=== PATIENT | male | born 1965 | race Caucasian/White ===

== ENCOUNTER → 2018-01-18 | Outpatient (CLI) | payer OTHER ==
--- NOTE | 2018-01-18 09:09 | US ---
EXAMINATION TYPE: US carotid duplex BILAT DATE OF EXAM: 01/18/2018 COMPARISON: NONE CLINICAL HISTORY: M54.5 Lumbago / M54.2 Cervicalgia / R51 Headache. Neck pain, headaches EXAM MEASUREMENTS: RIGHT: Peak Systolic Velocity (PSV) cm/sec ----- Right CCA: 78.7 ----- Right ICA: 65.5 ----- Right ECA: 89.9 ICA/CCA ratio: 0.8 RIGHT: End Diastole cm/sec ----- Right CCA: 23.7 ----- Right ICA: 21.5 ----- Right ECA: 22.1 LEFT: Peak Systolic Velocity (PSV) cm/sec ----- Left CCA: 89.8 ----- Left ICA: 77.6 ----- Left ECA: 82.1 ICA/CCA ratio: 0.9 LEFT: End Diastole cm/sec ----- Left CCA: 20.6 ----- Left ICA: 26.7 ----- Left ECA: 15.4 VERTEBRALS (direction of flow): Right Vertebral: Antegrade Left Vertebral: Antegrade Rhythm: Normal No elevated velocities, no significant stenosis. IMPRESSION: Mild degree of grayscale atheromatous plaquing with no sonographically evident hemodynam ically significant stenosis within either visualized carotid arterial system.
--- NOTE | 2018-01-18 10:46 | MR ---
EXAMINATION TYPE: MR brain wo con DATE OF EXAM: 01/18/2018 COMPARISON: NONE HISTORY: Headache per order. TECHNIQUE: Multiplanar, multisequence imaging of the brain and brainstem is performed without IV cont rast. FINDINGS: Diffusion weighted images demonstrate no evidence of a recent infarct or other diffusion abnormality. There is no extraaxial fluid collection or significant white matter signal abnormality. The ventricu lar system and cisternal spaces are normal in size and appearance. The brain volume is age appropria te. Midline structures demonstrate normal morphology. The craniocervical junction appears within normal limits. Normal vascular flow voids are present. Dominant left vertebral artery incidentally noted. Th e visualized sinuses are clear and the globes are intact. IMPRESSION: No suspicious finding is seen to account for patient's symptoms.
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
== END | disposition home or self-care (01) ==
LOC: RADUSMAIN 08:09
PROVIDERS: ATTEND Psychiatry & Neurology Neurology
DX: M48.061 Spinal stenosis, lumbar region without neurogenic claudication (principal); M99.73 Connective tissue and disc stenosis of intervertebral foramina of lumbar region; M51.26 Other intervertebral disc displacement, lumbar region; M47.817 Spondylosis without myelopathy or radiculopathy, lumbosacral region; M46.97 Unspecified inflammatory spondylopathy, lumbosacral region; M50.222 Other cervical disc displacement at C5-C6 level; I65.23 Occlusion and stenosis of bilateral carotid arteries; R55 Syncope and collapse; R51 Headache
CPT/HCPCS: 70551; 72141; 72148; 93880

== ENCOUNTER → 2019-08-29 | Outpatient (CLI) | payer OTHER ==
--- NOTE | 2019-08-30 07:28 | CT ---
EXAMINATION TYPE: CT abdomen wo/w con DATE OF EXAM: 08/29/2019 COMPARISON: None. HISTORY: Epigastric and flank pain x couple weeks. CT DLP: 1642 mGycm, Automated Exposure Control for Dose Reduction was Utilized. CONTRAST: CT scan of the abdomen is performed with oral and without and with IV Contrast, patient injected with 100ml mL of Isovue 300. FINDINGS: LUNG BASES: No significant abnormality is appreciated. LIVER/GB: Noncontrast images show liver to be markedly hypodense consistent with diffuse fatty infilt ration. PANCREAS: No significant abnormality is seen. SPLEEN: No significant abnormality is seen. ADRENALS: No significant abnormality is seen. KIDNEYS: Noncontrast images show no renal calculi bilaterally. There is symmetric cortical medullary uptake and excretion from both kidneys without concerning solid or cystic renal mass or hydronephrosi s seen bilaterally. BOWEL: Oral contrast does not reach colonic level making evaluation slightly suboptimal. Appendix is normal in size from base of cecum. LYMPH NODES: No greater than 1cm abdominal lymph nodes are appreciated. OSSEOUS STRUCTURES: Partially sacralized right L5 segment is seen. Moderate disc space narrowing and spurring L4-L5 level. Posterior spurring effaces the ventral thecal sac at this level. Facet arthropa thy lower lumbar levels. OTHER: Mild calcified plaque of the aorta. Moderate size wide neck umbilical hernia containing fat ax ial image 57. IMPRESSION: No significant acute finding is seen to account for patient's clinical symptoms of epiga stric and flank pain. Fatty infiltration of liver is noted..
== END | disposition home or self-care (01) ==
LOC: RADCTMAIN 15:19
PROVIDERS: ATTEND Nurse Practitioner
DX: K76.0 Fatty (change of) liver, not elsewhere classified (principal)
CPT/HCPCS: 74170; Q9967

== ENCOUNTER → 2019-10-26 | Outpatient (CLI) | payer OTHER ==
--- NOTE | 2019-10-26 10:06 | MR ---
EXAMINATION TYPE: MR lumbar spine wo con DATE OF EXAM: 10/26/2019 COMPARISON: Prior MRI lumbar spine January 18, 2018. CT abdomen August 29, 2019. HISTORY: Low back pain, disc degeneration, osteophyte, and radiculopathy all per order. Low back pain for over 10 years into bilateral thighs and right calf per patient. TECHNIQUE: Multiplanar, multisequence imaging of the lumbar spine is performed without IV contrast. FINDINGS: Sagittal images of the lumbar spine show vertebral body heights and alignment to remain satisfactory. While use same counting system as utilized on prior MRI. Prominent Schmorl node superior L4 and L5 e ndplates are redemonstrated. There is sacralized right L5 segment noted. There is persistent disc mery iccation at L3-L4 and L4-L5 levels. There is persistent moderate disc space narrowing L4-L5 level wit h moderate anterior spurring and heterogeneous Modic type II endplate changes redemonstrated. Small p osterior disc herniation L4-L5 level remains present on sagittal images. The conus medullaris remain s normal in position and signal ending mid L1 level. Axial images show the T12-L1 level to remain within normal limits. Axial images at L1-L2 level and the L2-L3 levels redemonstrate stable mild facet degenerative changes bilaterally . Axial images at L3-L4 level redemonstrate mild facet degenerative changes bilaterally. There is broad -based posterior disc protrusion minimally effacing anterior thecal sac on axial image 13. There is m ild bilateral anterior inferior neural foraminal narrowing redemonstrated. No significant change from prior. Axial images at L4-L5 level redemonstrate moderate facet degenerative changes bilaterally. There is b road-based posterior disc protrusion minimally effacing anterior thecal sac. There is mild to moderat e right greater than left bilateral anterior inferior neural foraminal narrowing redemonstrated. Ther e is no significant change from prior. Axial images at L5-S1 level show stable mild to moderate facet degenerative changes bilaterally. No suspicious incidental new retroperitoneal findings are seen. IMPRESSION: Multilevel degenerative changes in the lumbar spine as detailed above greatest at the L4- L5 level. No significant change or progression from most recent MRI.
== END | disposition home or self-care (01) ==
LOC: RADMRIMAIN 09:12
PROVIDERS: ATTEND Orthopaedic Surgery Orthopaedic Surgery of the Spine
DX: M47.26 Other spondylosis with radiculopathy, lumbar region (principal)
CPT/HCPCS: 72148

== ENCOUNTER → 2020-01-29 | Outpatient (CLI) | payer OTHER ==
[2020-01-27 15:47] VITALS: BMI 27.8
[2020-01-29 10:20] VITALS: BP 165/106; PULSE 84; RESP 16
--- NOTE | 2020-01-29 10:40 | P.PAINCN ---
History of Present Illness - Reason for Consult Consult date: 01/29/20 Requesting physician: Snehal Vargas - Chief Complaint Low back pain, right leg numbness and pain. - History of Present Illness Mr. Joya is a very pleasant 54-year-old male who presents to the [facility] pain clinic at the request of Dr. Neil Vargas. He presents with a chief complaint of low back pain and numbness and tingling in his right leg. He's had this pain for at least 5 years that's progressively gotten worse. He's had no therapy or evaluation up until this past year. He did see Dr. Romero for an unrelated issue and had a right hip injection that provided him with no relief of pain in his right leg. VAS today ranges from 3-7 out of 10 in severity describes it as a constant with varying intensity throbbing, shooting, numbing, tingling sensation in his right upper buttock radiating to his anterior quadriceps along his tibia into the dorsal aspect of his right foot. Pain is typically worse after activity and at night. He does not recall any alleviating factors other than rest. He's taken [id number] medication with no benefit. He does not endorse any recent falls. He denies any bowel or bladder incontinence or saddle anesthesia. Review of Systems Review of Systems 1. Constitutional: No chills , no fever , no night sweats , no change of appetite, no lethargy 2. Ears: No ear ache, no ear discharge , no change in hearing 3. Nose, Mouth ,Throat; No bleeding gums, no sore throat , no epistaxis , no hoarseness , no voice change 4. Cardiovascular: Denies chest pain, no palpitation , no paroxysmal nocturnal dyspnea , no leg edema 5. Respiratory: Denies cough , no dyspnea , no hemoptysis , no sleep apnea, no wheezing 6. Gastrointestinal: No abdominal pain , no bloating , no change in bowel habits , no coffee-ground emesis , No melena , no jaundice , no nausea , no vomiting 7. Genitourinary: No hematuria , no discharge 8. Musculoskeletal: As per HPI 9. Neurological: No ataxia , no aphasia ,no balance difficulties, no change in visions , no change in speech , no tremor . 10. Psychatric: depression , no suicidal ideation, 11. Hematologic: No easy bleeding, no easy brusing. 12. Integumentary: No brttle nails, no change hair , no hirsutism no depigmentation , no foot/leg ulcers . Past Medical History Past Medical History: GERD/Reflux, Hypertension, Sleep Apnea/CPAP/BIPAP Additional Past Medical History / Comment(s): states episodes where he passes out (x3)., uses c-pap machine., recent Gerd, avk-ztfxyupu-[id number] diet, abnormal liver enzymes-dr monitoring., Back pain that radiates to hips and down right leg. History of Any Multi-Drug Resistant Organisms: None Reported Additional Past Surgical History / Comment(s): tendons in wrist surgery. Past Anesthesia/Blood Transfusion Reactions: No Reported Reaction Smoking Status: Never smoker - Past Family History Mother Family Medical History: Cancer Sister(s) Family Medical History: Cancer Medications and Allergies Home Medications Medication Instructions Recorded Confirmed Type Levothyroxine Sodium 25 mcg PO DAILY 01/27/20 01/27/20 History amLODIPine BESYLATE [Norvasc] 2.5 mg PO DAILY 01/27/20 01/27/20 History Allergies Allergy/AdvReac Type Severity Reaction Status Date / Time losartan AdvReac Unknown cramps in Verified 01/29/20 10:13 back, chest and legs. unknown bp med AdvReac Unknown Cough Uncoded 01/29/20 10:13 Physical Exam Vitals: Vital Signs Pulse Resp BP Pulse Ox 01/29/20 10:13 84 16 165/106 96 Gen: WDWN, AAOx3, NAD HEENT: NCAT, EOMI, hearing grossly normal Pulm: resp unlabored Abd: soft, NT, ND Neck: supple, trachea midline ROM in flexion cervical spine: Normal ROM in extension cervical spine: Normal Cervical paravertebral tenderness: Normal Cervical Facet tenderness: Negative for tenderness Spurling's: Negative ROM in flexion lumbar spine: Pain with flexion at 45 ROM in extension lumbar spine: Pain with extension at -5 Lumbar paravertebral tenderness: + Bilateral Facet loading: + Bilateral SI joint tenderness: Negative Ermias's test: Negative Straight leg raise: + + Right Right hip range of motion appropriate, no pain with motion or external rotation. Neuro: Muscle strength in upper extremity 5 out of 5 in triceps, biceps, deltoid and wrist flexion and extension. Left lower extremity dorsiflexion and plantar flexion and quadriceps extension is appropriate 5 out of 5. Quadriceps extension 4 out of 5 on the right, dorsiflexion 4 out of 5 on the right. 1 out of 2 patellar reflexes bilaterally 1 out of 2 reflexes in biceps and brachial radialis. Dysesthesia noted along L3 and L4 nerve root on the right. Results Results: MRI lumbar spine: 1. At L1-L2 and L2-L3 there is mild facet degenerative changes bilaterally. 2. At L3-L4 mild facet degenerative changes bilaterally, there is a broad-based posterior disc protrusion effacing the anterior thecal sac. There is bilateral neuroforaminal narrowing demonstrated. 3. At L4-L5 there is moderate facet degeneration noted bilaterally. Is a broad-based posterior disc protrusion leading to moderate right neural foraminal narrowing. 4. At L5-S1 there is mild to moderate facet degeneration bilaterally. Assessment and Plan Assessment: 1. Lumbar degenerative disc disease 2. Lumbar spondylosis without myelopathy 3. Lumbar radiculopathy. Plan: After reviewing images and thorough history and physical I discussed with Dr. Joya his diagnosis as well as possible therapies. We discussed performing epidural steroid injections targeting the L3-L4 and L4-L5 interspace on the right specifically. We also discussed doing lumbar facet injections at L3-L4, L4-L5, L5-S1. He states that the radicular pain into his right leg is most problematic. He would like to proceed with epidural steroid injections after reviewing the risks and benefits in detail. I discussed include performed to once authorization is received from the insurance company. Would likely do them 1-2 weeks apart and then reevaluate. Given the fact that this is been an ongoing issue for over 5 years I did discuss the possibility that the epidural injections may not work. Patient understands and wishes to proceed regardless. PQRS Measure Charge Sheet PQRS Narrative: Smoking Status Never smoker Blood Pressure 165/106 Pain Intensity [Lower Back] 7 Scale Used Numeric (1 - 10) Hx Alcohol Use (MH) No Home Medications: Ambulatory Orders Levothyroxine Sodium 25 mcg PO DAILY 01/27/20 amLODIPine BESYLATE [Norvasc] 2.5 mg PO DAILY 01/27/20
== END | disposition home or self-care (01) ==
LOC: PNWHC3 09:00
PROVIDERS: ATTEND Anesthesiology
DX: M51.16 Intervertebral disc disorders with radiculopathy, lumbar region (principal); M47.26 Other spondylosis with radiculopathy, lumbar region; Z79.899 Other long term (current) drug therapy; Z88.8 Allergy status to other drugs, medicaments and biological substances
CPT/HCPCS: 99211

== ENCOUNTER 2020-03-17 08:16 | Day surgery (SDC) | payer OTHER ==
[2020-03-16 11:45] VITALS: BMI 28.1
[~2020-03-17 08:16] MED LIST: LACTATED RINGERS 1,000 ML IV SCH
[2020-03-17 08:49] VITALS: TEMP 97.4
[2020-03-17 08:59] LABS: Glucose,Whole Blood 150 mg/dL (75-99)
[2020-03-17] MEDS ORDERED: fentaNYL (PF) 50 MCG/ML 2 ML AMP ONE (09:19)
[2020-03-17] MEDS ORDERED: DEXAMETHASONE SOD PHOSPHATE 10 MG/ML 1 ML VIAL ONE (09:19)
[2020-03-17] MEDS ORDERED: MIDAZOLAM 2 MG/2 ML VIAL ONE (09:19)
[2020-03-17] MEDS ORDERED: IOPAMIDOL M200 10 ML VIAL ONE (09:19)
[2020-03-17] MEDS ORDERED: IV FLUID CONTINUATION 1,000 ML IV ONE ×2 (09:45)
[2020-03-17 09:51] VITALS: RESP 18
--- NOTE | 2020-03-17 09:51 | P.PCN ---
Date of Procedure: 03/17/20 Procedure(s) Performed: PREOPERATIVE DIAGNOSIS: Lumbar radiculopathy POSTOPERATIVE DIAGNOSIS: Lumbar radiculopathy Attending physician: Kenisha Miguel M.D. PROCEDURE 1. Transforaminal epidural steroid injection under fluoroscopic guidance L3-4 and L4-5 level, right side 2. Lumbar epidurogram ANESTHESIA: Local with 1% lidocaine 3 ml ; IV sedation with Versed and fentanyl , sedation time 11 minutes PROCEDURE INDICATION: The patient with low back pain and radiculopathy symptoms unresponsive to conservative treatment. Fluoroscopy was used for the procedure and fluoroscopic images were saved to the radiology portion of patient's chart. PROCEDURE DESCRIPTION / TECHNIQUE: The patient was seen and identified in the preoperative area. Risks, benefits, complications, and alternatives were discussed with the patient. The patient agreed to proceed with the procedure and signed the consent. IV was started, and vital signs were stable. Patient was taken to the OR and time out was completed. The patient was placed in the prone position on procedure table and a pillow was placed under the abdo men to reduce lumbar lordosis. The lumbosacral area was prepped and draped in the usual sterile fashion. Vital signs were closely monitored during the procedure. Conscious sedation was used. Using oblique fluoroscopy, the chin of the ``Michael dog and the skin and deeper tissues just below was localized with 1% lidocaine. Subsequently, a 22- gauge 5-inch spinal needle was advanced under a tunneled view fluoroscopic guidance just underneath the chin of the ``Michael dog at above-mentioned levels . Under lateral fluoroscopy, the needle was then advanced to the posterior border of the foramen. After negative aspiration of CSF and blood and with no paresthesias, 1 mL of Isovue-200 contrast dye was injected under live fluoroscopy and there was no evidence of intravascular injection. The injectate solution consisting of 7.5 mg of dexamethasone with 1 mL of 1% lidocaine was then delivered at each spot. A total of 15 mg of dexamethasone was used. The needles was withdrawn intact. At the end of the procedure, skin was cleansed, and bandages were applied. COMPLICATIONS: None COMMENTS: DISPOSITION / PLANS: The patient was placed in a supine position and transferred to the recovery area in a stable condition for observation. There was no evidence of lower extremity motor or sensory deficit after the procedure. Patient was discharged from the recovery room after meeting discharge criteria. Home discharge instructions were given to the patient by the staff. The patient will follow up in clinic in 2-4 weeks.
[2020-03-17 10:05] VITALS: BP 132/75; PULSE 56
--- NOTE | 2020-03-17 10:19 | FL ---
EXAMINATION TYPE: FL guided pain mgmt statistic DATE OF EXAM: 03/17/2020 COMPARISON: NONE HISTORY: Right transforaminal pain injection TECHNIQUE: Fluoroscopy. FINDINGS: Fluoroscopic guidance was provided during procedure performed by Dr. Lyons. A total of 8 se conds of fluoroscopic time was utilized during the procedure and 5 spot images was acquired. IMPRESSION: Fluoroscopic guidance as above. Please see performing physician's operative note for colton tional details.
== END 2020-03-17 10:27 | disposition home or self-care (01) ==
LOC: ORPAIN 08:16
PROVIDERS: ATTEND Anesthesiology
DX: M54.16 Radiculopathy, lumbar region (principal); R73.03 Prediabetes; Z88.8 Allergy status to other drugs, medicaments and biological substances
CPT/HCPCS: 64483; 64484; 99152

== ENCOUNTER 2020-05-12 12:46 | Day surgery (SDC) | payer OTHER ==
[2020-05-11 11:22] VITALS: BMI 27.8
[2020-05-12] MEDS ORDERED: LACTATED RINGERS 1,000 ML IV SCH (12:54)
[2020-05-12 13:11] VITALS: RESP 16; TEMP 98.4
[2020-05-12 13:13] LABS: Glucose,Whole Blood 111 mg/dL (75-99)
[2020-05-12] MEDS ORDERED: ROPIVACAINE 5MG/ML 20ML VIAL ONE (13:13)
[2020-05-12] MEDS ORDERED: IOPAMIDOL M200 10 ML VIAL ONE (13:13)
[2020-05-12] MEDS ORDERED: MIDAZOLAM 2 MG/2 ML VIAL ONE (13:13)
[2020-05-12] MEDS ORDERED: fentaNYL (PF) 50 MCG/ML 2 ML AMP ONE (13:13)
[2020-05-12] MEDS ORDERED: DEXAMETHASONE SOD PHOSPHATE 10 MG/ML 1 ML VIAL ONE (13:13)
--- NOTE | 2020-05-12 13:34 | P.PCN ---
Date of Procedure: 05/12/20 Description of Procedure: PREOPERATIVE DIAGNOSIS: Lumbar radiculopathy POSTOPERATIVE DIAGNOSIS: Lumbar radiculopathy Attending physician: José Miguel Perez M.D. PROCEDURE 1. Transforaminal epidural steroid injection under fluoroscopic guidance L3-4 and L4-5 level, right side 2. Lumbar epidurogram ANESTHESIA: Local with 1% lidocaine 3 ml ; IV sedation with Versed and fentanyl , sedation time 14 minutes PROCEDURE INDICATION: The patient with low back pain and radiculopathy symptoms unresponsive to conservative treatment. Fluoroscopy was used for the procedure and fluoroscopic images were saved to the radiology portion of patient's chart. PROCEDURE DESCRIPTION / TECHNIQUE: The patient was seen and identified in the preoperative area. Risks, benefits, complications, and alternatives were discussed with the patient. The patient agreed to proceed with the procedure and signed the consent. IV was started, and vital signs were stable. Patient was taken to the OR and time out was completed. The patient was placed in the prone position on procedure table and a pillow was placed under the abdomen to reduce lumbar lordosis. The lumbosacral area was prepped and draped in the usual sterile fashion. Vital signs were closely monitored during the procedure. Conscious sedation was used. Using oblique fluoroscopy, the chin of the ``Michael dog and the skin and deeper tissues just below was localized with 1% lidocaine. Subsequently, a 22- gauge 5-inch spinal needle was advanced under a tunneled view fluoroscopic guidance just underneath the chin of the ``Michael dog at above-mentioned levels . Under lateral fluoroscopy, the needle was then advanced to the posterior border of the foramen. After negative aspiration of CSF and blood and with no paresthesias, 1 mL of Isovue-200 contrast dye was injected under live fluoroscopy and there was no evidence of intravascular injection. The injectate solution consisting of 5 mg of dexamethasone with 1.5 mL of 0.5% ropivacaine was then delivered at each spot. A total of 10 mg of dexamethasone was used. The needles was withdrawn intact. At the end of the procedure, skin was cleansed, and bandages were applied. COMPLICATIONS: None COMMENTS: DISPOSITION / PLANS: The patient was placed in a supine position and transferred to the recovery area in a stable condition for observation. There was no evidence of lower extremity motor or sensory deficit after the procedure. Patient was discharged from the recovery room after meeting discharge criteria. Home discharge instructions were given to the patient by the staff. The patient will follow up in clinic in 2-4 weeks.
--- NOTE | 2020-05-12 13:45 | FL ---
Fluoroscopy HISTORY: Pain 34 seconds fluoroscopy time supplied to the referring clinician. 4 intraoperative C-arm images docum ent the procedure. See dictated report from anesthesia.
[2020-05-12 13:46] VITALS: PULSE 74
[2020-05-12 13:58] VITALS: BP 145/89
[2020-05-12] MEDS ORDERED: IV FLUID CONTINUATION 1,000 ML IV ONE (14:02)
== END 2020-05-12 14:12 | disposition home or self-care (01) ==
LOC: ORPAIN 12:46
PROVIDERS: ATTEND Anesthesiology
DX: M54.16 Radiculopathy, lumbar region (principal); E11.9 Type 2 diabetes mellitus without complications; Z88.8 Allergy status to other drugs, medicaments and biological substances
CPT/HCPCS: 64483; 64484; J2250; J1100; J3010; Q9966; J2795; 99152

== ENCOUNTER → 2020-06-15 | Outpatient (CLI) | payer OTHER ==
[2020-06-15 08:06] VITALS: PULSE 89; RESP 18; TEMP 97.9
--- NOTE | 2020-06-15 08:17 | P.PAINPG ---
Subjective Progress Note Date: 06/15/20 Principal diagnosis: lumbar radiculopathy Mr. Joya is a 54-year-old gentleman who presents for follow-up after right-sided transforaminal epidural steroid injection L3-4, L4-L5. He reports that injections only helped transiently. As for today has pain most of the right side of his low back. He describes pain over the right lumbar area with some radiation to her anterior thigh and into the buttocks. There is no pain into the groin. There is no pain with internal/external rotation of the hip joint. He has pain which she describes as a aching sensation sometimes sharp shooting pain down the leg but that is very common. He reports that somewhat improved. He has some pain over left side of low back and has but is a right. Facet that the pain is limiting his daily activities. He has been in physical therapy many years ago continues to try to do some of the stretches but not in full therapy at this time. Objective - Exam General: Awake and alert oriented 3 no distress Respiratory exam: No audible wheezing no accessory muscle usage Cardiovascular exam: regular rate, palpable bilateral pulses, no lower extremity edema Abdominal exam: No distention nontender to palpation Cervical spine: Normal alignment, Spurling's negative, facet loading negative, Policy Value Calculator strength is 5/5, antoine negative Lumbar spine: Loss of lumbar lordosis, normal alignment, tender to palpation over right paraspinal muscles, facet loading is positive on the right Straight leg raise is negative. Limited range of motion due to pain with flexion, extension and side bending. Sacroiliac joints: Nontender to palpation, KARAN is negative, Gaenselon negative Neuro exam: Normal sensation in bilateral upper extremities, deep tendon reflexes are 2+ bilateral upper extremities. Normal sensation in bilateral lowe r extremities. Deep tendon reflexes are 2+ in lower extremities Psych exam: Cooperative, appropriate mood Assessment and Plan Assessment: #1 lumbar spondylosis without myelopathy #2 lumbar degenerative disc disease #3 lumbar radiculopathy Plan: Had a discussion with the patient regarding her symptoms and isn't improvement from the transfemoral epidural injection. We discussed that doing a diagnostic test in the right side facet joints would likely be a next best step. He reports that the Mobic did not help very much so we'll stop that. We'll schedule for a right-sided L3 4, L4 5, L5-S1 medial branch block. We discussed diagnostic utilization in detail. We discussed the potential radio frequency ablation may be required. PQRS Measure Charge Sheet Measure #130: Documentation of Current Meds in Medical Chart: Patient's medications documented in chart Measure #226: Tobacco Use: Screen & Cessation Intervention: Pt not a tobacco user Measure #111: Pneumonia Vaccination: Pneumococcal vaccine administered or previo usly received Measure #47: Advance Care Plan: Advance care planning discussed & documented, plan or surrogate given Measure #412: Opioid Treatment Agreement: No documentation of signed opioid treatment agreement Measure #408: Opioid Therapy Follow-up Evaluation: Patient had f/u eval minimum every 3 months during opioid therapy Measure #317: Preventitive Care & Scrn High Bld Press & F/U: Normal blood pressure, f/u not required Measure #128: Body Mass Index (BMI) Screening & Follow-up: BMI documented ABOVE normal parameters - f/u documented Measure #131: Pain Assessment & Follow-up: Pain positive & plan documented Measure #431: Unhealthy Alcohol Use Preventative Care & Scrn: Patient not identified as an unhealthy alcohol user PQRS Narrative: Smoking Status Never smoker Pain Intensity [Back] 8 Scale Used Numeric (1 - 10) Hx Alcohol Use (MH) Yes: RARE Home Medications: Ambulatory Orders Levothyroxine Sodium 25 mcg PO DAILY 01/27/20 amLODIPine BESYLATE [Norvasc] 2.5 mg PO DAILY 01/27/20 Ibuprofen 600 - 800 mg PO Q8H PRN 06/12/20 Meloxicam [Mobic] 15 mg PO DAILY 06/12/20 Controlled Substance Measures - Controlled Substance Measures Is patient prescribed a controlled substance at discharge?: No When asked, does pt state using other controlled substances?: No
[2020-06-15 08:22] VITALS: BP 164/105
== END | disposition home or self-care (01) ==
LOC: PNWHC3 07:52
PROVIDERS: ATTEND Hospitalist
DX: M51.36 Other intervertebral disc degeneration, lumbar region (principal); M47.26 Other spondylosis with radiculopathy, lumbar region; Z79.890 Hormone replacement therapy; Z79.899 Other long term (current) drug therapy; Z79.1 Long term (current) use of non-steroidal anti-inflammatories (NSAID)
CPT/HCPCS: 99211

== ENCOUNTER 2020-07-10 06:59 | Day surgery (SDC) | payer OTHER ==
[2020-07-09 12:24] VITALS: BMI 27.8
[2020-07-10 07:41] VITALS: RESP 16; TEMP 97.2
[2020-07-10] MEDS ORDERED: LACTATED RINGERS 1,000 ML IV ONE (07:55)
[2020-07-10] MEDS ORDERED: MIDAZOLAM 2 MG/2 ML VIAL ONE (08:10)
[2020-07-10] MEDS ORDERED: fentaNYL (PF) 50 MCG/ML 2 ML AMP ONE (08:10)
[2020-07-10] MEDS ORDERED: ROPIVACAINE 5MG/ML 20ML VIAL ONE (08:10)
[2020-07-10] MEDS ORDERED: methylPREDNISolone ACETATE 40 MG/ML 1 ML VIAL ONE (08:10)
[2020-07-10] MEDS ORDERED: IOPAMIDOL M200 10 ML VIAL ONE (08:10)
--- NOTE | 2020-07-10 08:27 | P.PCN ---
Date of Procedure: 07/10/20 Description of Procedure: PREOPERATIVE DIAGNOSIS : Lumbar spondylosis with Facet Arthropathy without myelopathy POSTOPERATIVE DIAGNOSIS: same PROCEDURE: first Diagnostic RIGHT lumbar medial branch block with fluoroscopy at facets L3-4, L4-5, L5-S1. Note, patient has sacralized L5 vertebrae fused with S1 ANESTHESIA: Local anesthetic; moderate IV sedation Fluoroscopy was used for the procedure and images were saved in the radiology portion of the chart. Surgeon: José Miguel Perez MD PROCEDURE INDICATION: Lumbar back pain without radiculopathy, not responsive to conservative management. PROCEDURE DESCRIPTION: the patient was seen and identified in the preop holding area , risks and benefits and possible complications of the procedure and alternatives were discussed with the patient, and the patient agreed to proceed with the procedure and signed the consent . IV was started , vital signs were monitored during the procedure and fluoroscopy was used to maximize the benefit and accuracy of the needle placement, and sedation was given to decrease patient anxiety. Patient was taken to the procedure room and placed in prone position. The lumbar region was prepped using chlorhexidineX-2. Under strict sterile technique using AP fluoroscopy the bilateral sacral ala were identified and using ipsilateral oblique fluoroscopy ,the junction of the transverse process and the superior articulating process of the L3, L4, sacralized L5 vertebra which corresponds to the fluoroscopy image of the eye of the Michael dog for the medial branches were identified. Subsequently, after local infiltration of skin with lidocaine 1% 0.2 mL at each level , a 25-gauge 3.5" Quincke-type needle was placed at the junction of the base of the transverse process and the superior articular process at the appropriate level as well as the sacral ala, and the needle was advanced until the periosteum contacted, needle placement confirmed with AP and oblique fluoroscopy, 0.2 mL of Isovue 200 per level was injected which revealed no vascular uptake and after negative aspiration,3 mL of bupivacaine 0.5% with 40 mg of depomedrol was mixed and injected at each level and the needle subsequently removed . Total of 3 sites were injected, at the junction of the SAP and TP of L3, L4 and at what looked like the junction of the SAP and TP with fused S1 and L5 vertebra. At the end of the procedure and the needles were removed and a bandage applied after the skin was cleaned. The patient was taken to recovery room in stable condition and monitors in the recovery room for 20-30 minutes and discharged home in stable condition after discharge criteria met and patient will follow up in clinic in 2 weeks EBL: Minimal COMPLICATION: None.
[2020-07-10 08:58] VITALS: BP 1258/79; PULSE 70
[2020-07-10] MEDS ORDERED: IV FLUID CONTINUATION 700 ML IV ONE (08:58)
--- NOTE | 2020-07-10 10:11 | FL ---
Fluoroscopy HISTORY: Pain 12 seconds fluoroscopy time supplied to the referring clinician. 2 intraoperative C-arm images docum ent the procedure. See dictated report from anesthesia.
== END 2020-07-10 09:02 | disposition home or self-care (01) ==
LOC: ORPAIN 06:59
PROVIDERS: ATTEND Anesthesiology
DX: M47.816 Spondylosis without myelopathy or radiculopathy, lumbar region (principal); Q76.49 Other congenital malformations of spine, not associated with scoliosis; I10 Essential (primary) hypertension; Z79.899 Other long term (current) drug therapy
CPT/HCPCS: 64493; 64494; 64495; J2250; J1030; J3010; Q9966; J2795

== ENCOUNTER 2020-09-11 06:54 | Day surgery (SDC) | payer OTHER ==
[2020-09-10 12:36] VITALS: BMI 26.4
[2020-09-11 07:24] VITALS: TEMP 98.2
[2020-09-11 07:36] LABS: Glucose,Whole Blood 133 mg/dL (75-99)
[2020-09-11] MEDS ORDERED: ROPIVACAINE 5MG/ML 20ML VIAL ONE (08:20)
[2020-09-11] MEDS ORDERED: methylPREDNISolone ACETATE 40 MG/ML 1 ML VIAL ONE (08:20)
[2020-09-11] MEDS ORDERED: MIDAZOLAM 2 MG/2 ML VIAL ONE (08:23)
[2020-09-11] MEDS ORDERED: fentaNYL (PF) 50 MCG/ML 2 ML AMP ONE (08:23)
--- NOTE | 2020-09-11 08:37 | P.PCN ---
Date of Procedure: 09/11/20 Procedure(s) Performed: PREOPERATIVE DIAGNOSIS : 1- Lumbar spondylosis with Facet Arthropathy without myelopathy . POSTOPERATIVE DIAGNOSIS: 1- Lumbar spondylosis with Facet Arthropathy without myelopathy . PROCEDURE: Diagnostic Right L2 , L3 , L4 , and L5 medial branch block under fluoroscopy guidance(fluoroscopy images available in the radiology Department ) ( To target the facet joint between Right L3-4 , L4-5 , and L5-S1 ) ANESTHESIA:, Monitored anesthesia care by anesthesia department EBL: Minimal COMPLICATION: None PROCEDURE INDICATION: Chronic low back pain secondary to Facet arthropathy unresponsive to conservative treatment. PROCEDURE DESCRIPTION: the patient was seen and identified in the preop holding area , risks and benefits and possible complications of the procedure and alternative were discussed with the patient, and the patient agreed to proceed with the procedure and signed the consent and vital signs monitored during the procedure and fluoroscopy was used to maximize the benefit and accuracy of the needle placement, and sedation was given to decrease patient anxiety, patient was taken to the procedure room and placed in prone position vital signs monitored in the back prepped with chlorhexidine X3 then under strict sterile technique using a right oblique fluoroscopy ,the junction of the transverse process and the superior articulating process of the right L2 , L3 , L4 , and L5 vertebra which corresponding to the fluoroscopy image of the eye of the Michael dog on the block side for the medial branches and subsequently , after local infiltration of skin and subcu tissuies with Ropivacaine 0.5 % , one mL at each level ,then 22-gauge Quincke-type needles , 4 needle was used , each one of them placed at the junction of the base of the transverse process and the superior articular process at the appropriate level, and the needle was advanced until the periosteum contacted, needle placement confirmed with AP oblique and lateral view and after appropriate needle placement confirmed, and after negative aspiration for heme and CSF and there was no paresthesia 2 mL of Ropivacaine 0.5% mixed with 40 mg Depo-Medrol , then half mL injected at each level after negative aspiration the needle subsequently removed . At the end of the procedure and the needles removed and a bandage applied after the skin was cleaned the cleaning solution patient taken to recovery room in stable condition and monitors in the recovery room for 20-30 minutes and discharged home in stable condition after discharge criteria met and patient will follow up with the pain clinic in 2-4 weeks
[2020-09-11] MEDS ORDERED: IV FLUID CONTINUATION 900 ML IV ONE (08:38)
--- NOTE | 2020-09-11 08:52 | FL ---
Fluoroscopy HISTORY: Pain 11 seconds fluoroscopy time supplied to the referring clinician. 3 intraoperative C-arm images docum ent the procedure. See dictated report from anesthesia.
[2020-09-11 08:57] VITALS: BP 132/80; PULSE 68; RESP 20
== END 2020-09-11 09:08 | disposition home or self-care (01) ==
LOC: ORPAIN 06:54
PROVIDERS: ATTEND Specialist
DX: G89.29 Other chronic pain (principal); M47.816 Spondylosis without myelopathy or radiculopathy, lumbar region; I10 Essential (primary) hypertension; G47.33 Obstructive sleep apnea (adult) (pediatric); E07.9 Disorder of thyroid, unspecified; E11.9 Type 2 diabetes mellitus without complications; K76.0 Fatty (change of) liver, not elsewhere classified; Z79.890 Hormone replacement therapy; Z79.899 Other long term (current) drug therapy; Z88.8 Allergy status to other drugs, medicaments and biological substances
CPT/HCPCS: 64493; 64494; 64495; J2250; J1030; J3010; J2795

== ENCOUNTER → 2020-11-30 | Outpatient (CLI) | payer OTHER ==
--- NOTE | 2020-11-30 10:40 | XR ---
EXAMINATION TYPE: XR chest 2V DATE OF EXAM: 11/30/2020 COMPARISON: None TECHNIQUE: PA and lateral views submitted. HISTORY: Preop FINDINGS: The lungs are clear and there is no pneumothorax, pleural effusion, or focal pneumonia. Hypertrophi c and degenerative change of the spine. Hyperinflation of the lungs. Somewhat coarsened interstitium. IMPRESSION: 1. Coarsened interstitium could be chronic related to mild chronic interstitial lung disease, correla te clinically.
[2020-11-30 11:17] LABS: Basophils # (A) 0.1 k/uL (0-0.2); Basophils % (A) 1 %; Eosinophils # (A) 0.1 k/uL (0-0.7); Eosinophils % (A) 1 %; HCT 52.3 % (39.0-53.0); HGB 18.8 gm/dL (13.0-17.5); Lymphocytes # (A) 2.3 k/uL (1.0-4.8); Lymphocytes % (A) 29 %; MCH 32.2 pg (25.0-35.0); MCV 89.6 fL (80.0-100.0); Mean Platelet Volume 7.8; Monocytes # (A) 0.5 k/uL (0-1.0); Monocytes % (A) 6 %; Neutrophils % (A) 62 %; Platelet Count 185 k/uL (150-450); RBC 5.84 m/uL (4.30-5.90); RDW 13.1 % (11.5-15.5); WBC 8.1 k/uL (3.8-10.6)
[2020-11-30 11:21] LABS: Appearance,Urine Clear (Clear); Bilirubin,Urine Negative (Negative); Blood,Urine Negative (Negative); Color,Urine Yellow; Glucose,Urine (UA) Trace (Negative); Ketones,Urine Negative (Negative); Leukocyte Esterase,Urine Negative (Negative); Nitrite,Urine Negative (Negative); PH, Urine 5.5 (5.0-8.0); Protein,Urine Negative (Negative); Specific Gravity,Urine 1.018 (1.001-1.035); Urobilinogen,Urine <2.0 mg/dL (<2.0)
[2020-11-30 11:23] LABS: Partial Thromboplastin Time 24.3 sec (22.0-30.0); Prothrombin Time 10.7 sec (9.0-12.0)
[2020-11-30 11:27] LABS: African American GFR (CKD) >90 (>60 ml/min/1.73 sqM); Anion Gap 10 mmol/L; Blood Urea Nitrogen 14 mg/dL (9-20); Calcium 10.2 mg/dL (8.4-10.2); Carbon Dioxide 22 mmol/L (22-30); Chloride 107 mmol/L (98-107); Glucose 173 mg/dL (74-99); Non-African American GFR(CKD) >90 (>60 ml/min/1.73 sqM); Potassium 4.7 mmol/L (3.5-5.1); Sodium 139 mmol/L (137-145)
== END | disposition home or self-care (01) ==
LOC: LABPAT 09:53
PROVIDERS: ATTEND Orthopaedic Surgery Orthopaedic Surgery of the Spine
DX: Z01.818 Encounter for other preprocedural examination (principal); M47.9 Spondylosis, unspecified; Z01.812 Encounter for preprocedural laboratory examination
CPT/HCPCS: 36415; 71046; 80048; 81003; 85025; 85610; 85730; 86850; 86900; 86901; 87070; 93005

== ENCOUNTER 2020-12-09 09:26 | Inpatient (IN) | payer OTHER ==
[2020-12-03 15:27] VITALS: BMI 28.4
[~2020-12-09 09:26] MED LIST changes: +DEXAMETHASONE SOD PHOSPHATE 4 MG/ML 1 ML VIAL IV ONE; -LACTATED RINGERS 1,000 ML IV SCH; +LIDOCAINE 1% (10MG/ML) FOR IV START INTRADERMA PRN; +ONDANSETRON 4 MG/2 ML VIAL IVP ONE; +ceFAZolin 1,000 MG in SODIUM CHLORIDE 0.9% IRRIGATIO 1,000 ML IRRIGATION PRN
[2020-12-09] MEDS: LACTATED RINGERS 1,000 ML IV SCH (10:23)
[2020-12-09 10:27] LABS: Glucose,Whole Blood 137 mg/dL (75-99)
[2020-12-09] MEDS ORDERED: SUCCINYLCHOLINE CHLORIDE VIAL 200 MG/10 ML VIAL IV ONE (11:23)
[2020-12-09] MEDS ORDERED: ePHEDrine SULFATE/0.9% NACL/PF 50 MG/5 ML SYRINGE IV ONE (11:23)
[2020-12-09] MEDS ORDERED: LIDOCAINE 1% INJ 10MG/ML (20 ML MDV) ONE (11:23)
[2020-12-09] MEDS ORDERED: ONDANSETRON 4 MG/2 ML VIAL ONE (11:23)
[2020-12-09] MEDS ORDERED: PROPOFOL 10 MG/ML 20 ML VIAL IV ONE (11:23)
[2020-12-09] MEDS ORDERED: ROCURONIUM 10 MG/ML (5 ML VIAL) IV ONE (11:23)
[2020-12-09] MEDS ORDERED: fentaNYL (PF) 50 MCG/ML 2 ML AMP ONE (11:23)
[2020-12-09] MEDS ORDERED: MIDAZOLAM 2 MG/2 ML VIAL ONE (11:23)
[2020-12-09] MEDS ORDERED: LIDOCAINE 1%-EPI 1:100,000 20 ML VIAL SQ ONE (12:00)
[2020-12-09] MEDS ORDERED: GELATIN SPONGE,ABSORB (LARGE) 1 EACH SPONGE TOPICAL ONE (12:30)
[2020-12-09] MEDS ORDERED: THROMBIN (BOVINE) 5,000 UNIT VIAL TOPICAL ONE (12:30)
[2020-12-09] MEDS ORDERED: LACTATED RINGERS 1,000 ML IV ONE (13:40)
[2020-12-09] MEDS ORDERED: HYDROcodone/APAP 5-325MG 1 EACH TAB PO PRN (14:09)
[2020-12-09] MEDS ORDERED: MAGNESIUM HYDROXIDE 2,400 MG/10 ML CUP PO PRN (14:09)
[2020-12-09] MEDS ORDERED: BENZOCAINE/MENTHOL LOZENG 1 EACH LOZENGE MUCOUS MEM PRN (14:09)
[2020-12-09] MEDS ORDERED: HYDROmorphone 0.5 MG/0.5 ML SYRINGE IVP PRN (14:09)
--- NOTE | 2020-12-09 14:16 | P.OP ---
Date of Procedure: 12/09/20 Preoperative Diagnosis: Degenerative disc disease L4 5, low back pain, foraminal stenosis L4 5, lower extremity radiculopathy Postoperative Diagnosis: Same Anesthesia: GETA Pathology: none sent Condition: stable Disposition: PACU Description of Procedure: DESCRIPTION OF PROCEDURE(S): BRIEF OPERATIVE NOTE Preoperative Diagnosis: Degenerative disc disease L4 5, low back pain, foraminal stenosis L4 5, lower extremity radiculopathy Postoperative Diagnosis: Same Procedure: Laminectomy and decompression L4 [address] navigation aided Minimally invasive Posterior lateral decompression and facet fusion L4 5 Minimally invasive Transforaminal lumbar interbody fusion for a 360 fusion L4 5 Discectomy for decompression L4 5 Placement of interbody graft L4 5 Use of computer navigation for fusion Local autogenous bone grafting Aspiration of bone marrow from the vertebral body pedicle at L4 on the right Use of bone graft extenders Surgeon: Dr. Vargas Immigration Paralegal: Brent SKELTON who is present throughout the entire the case persistence during positioning, dissection, exposure, visualization, and all crucial elements of the case as well as closure. Anesthesia: General anesthesia per Dr. Dr. Hirsch Estimated blood loss: Approximately 100 mL Complications: None apparent Components implanted: K2M minimally invasive [place] pedicle screw system withscrews measuring 6.5 mm in diameter to rods one [place] interbody cage with 10 mL of osteo amp bio4 bone graft substitute and 30 mL of the BX bone fibers to supplement the local autogenous bone graft and bone marrow aspirate Disposition: To recovery room in good stable condition. OPERATIVE INDICATIONS The patient has had severe issues at their lower extremity in her lower back over the past several years with significant worsening over the past several months. Over the past few years the patient had pain at his back and his right lower extremity. The patient is having significant radicular symptoms at his right lower extremity with weakness and difficulty with any activities. The patient is having significant pain in her back. They are unable to obtain any comfort. We did aggressive conservative treatment with medications therapy and interventional pain management however he was not having any relief. The patient also showed evidence of a listhesis with some dynamic instability. The patient has been through conservative treatment. We discussed various treatment options including surgery, and the patient wishes to proceed with surgery We discussed the risk, patient's alternatives and benefits of surgery including but not limited to, risk of bleeding risk of infection, risk of need for further surgery, risk of decreased, loss of motion, muscle function, malunion nonunion, hardware failure, nerve damage, paralysis, heart attack, blindness and . They understood issues with the current pandemic and the possibility of exposure. OPERATIVE SUMMARY After discussing all the risks, patient alternatives and benefits at length, the patient elected to proceed with surgical intervention, signed informed consent, and presented for their procedure. The patient was seen and examined in the preoperative holding area and the surgical site was marked. The patient was given antibiotics and brought to the operating room. The patient was sedated and intubated by anesthesia in standard fashion. The patient was positioned on to the operating room table in a prone position on the appropriate frame which was well-padded and well molded. We were careful to pad any bony prominences and pressure points. We were careful to maintain the patient's cervical spine and good neutral alignment and position throughout. The patient was prepped and draped in a normal standard fashion. An appropriate timeout and keystone protocol performed. We were able to proceed with the surgery. The local wound area was infiltrated with local anesthetic. Over the right iliac crest I was able to make small stab incisions and establish a guidepin screw fixation to the iliac crest 2. I was able place the computer referencing device over the guidepins to establish an appropriate reference point for the Ziem CT navigation. We then were able to place patient in an appropriate drape and do a navigation spin for visualization and 3-D reconstruction of the lumbar spine. I was able utilize C-arm guidance and navigation to establish appropriate position over the pedicles bilaterally at the appropriate levels at L4 5 . With the appropriate levels confirmed was able to make small stab incisions over the appropriate pedicle sites bilaterally. Utilizing the computer navigation device I was able to establish bony landmarks at the right iliac crest for a bony reference point for the navigation device. I was able to establish a Jamshidi needle over the lateral aspect of the pedicle and advanced the trocar into the pedicle being careful not to breech superiorly inferiorly medially or laterally using computer navigation device. Position was confirmed regularly with AP and lateral images on C-arm and with the computer navigation device at the appropriate levels bilaterally at L4 and L5. I was able to establish the trocar into the pedicle appropriately into the posterior aspect of the vertebral body bilaterally at the appropriate levels. This was done at each of the pedicle positions and each of the vertebrae. At the superior vertebrae I was able to take approximately 25 mL of bone aspiration for use later in the case to supplement the allograft and autograft bone. I was able place the guidewire into the trocar and into the vertebral body appropriately under C-arm guidance. Dissection was taken down over the wire to the appropriate starting position for the screw placed. The appropriate length screw was chosen, threaded over the guidewire and screwed appropriately into the pedicle and vertebral body under C-arm guidance in excellent alignment and position with good bony purchase. This is done at each of the screw sites at the appropriate levels of L4 and L5. With the screws intact I extended the incision to connect the screw hole sites on the most symptomatic side on the right. I dissected down to establish access over the pars and lamina to the base of the spinous process. I was able to expose the facet joint. The capsule the facet was taken down and showed some facet arthrosis at the joint. I was able to use a combination of curettes and Kerrison rongeurs and a high-speed drill to take down the facet joint and do a facetectomy. I was able get excellent foraminal decompression and central decompression with undermining across midline to perform a laminectomy centrally and contralaterally. As able get good central decompression. The ligamentum flavum was taken down to further decompress centrally and at bilateral neural foramen. I was able to expose the disc space and visualize the traversing nerve root. Note was made of some disc protrusion and disc herniation as well as large posterior osteophytes that was abutting the traversing nerve root at the level causing further compression of the nerve root. I had to use a small osteotome and pituitary rongeurs to remove large posterior osteophytes which helped with decompression of the area of the foramen . I was able to establish a annulotomy at the appropriate level protecting soft tissue and neural structures. Note was made of some disc desiccation at the disc. I performed a complete discectomy with accommodation of curettes and rasps and scrapers. I was able get good endplate preparation at the disc space. I sized for the appropriate size interbody spacer protecting the soft tissue and neural structures. The wound was copiously irrigated and suctioned dry. There is no evidence of any dural tear or leak. I was able to pack the disc space at L4 5 with local autogenous bone graft as well as a small amount of bone graft which was also placed into the interbody cage itself. Protecting the soft tissue structures and neural structures I was able place the interbody cage in good alignment and good position with good fit and fill at the interbody space. Position was confirmed with C-arm guidance. Good hemostasis maintained. There is no evidence of any dural tear or leak. The wound was irrigated and suctioned dry. With the hardware intact, intraoperative C-arm imaging was again taken which showed good alignment and position of the hardware at the appropriate levels. We were then able to measure, contour and place the rods and appropriate hardware bilaterally. I was able to place capcrews, tighten them down, and torque them with the torque screwdriver appropriately. With this intact I was able to place the local autogenous bone graft with additional bone graft enhancer as necessary into the posterior lateral gutters over the decorticated transverse processes and facet joints on the contralateral side. The remainder of the bone graft was placed over the facet joint on the contralateral side after taking down the facet joint capsule. With the bone graft intact, a stable construct, and good decompression at the appropriate levels, we were able to proceed with closure. Good hemostasis was maintained. There is no evidence of dural tear or leak. The fascia was closed for a watertight closure. he subcuticular tissue was closed with absorbable suture. The wound was cleaned and dried and dressed with the appropriate dressing. The drapes were broken down. The patient was gently rolled back onto their hospital bed being careful to maintain their cervical spine and good neutral alignment and position. They were woken up by anesthesia, extubated, and brought to the recovery room in good stable condition. The patient will be admitted to the hospital for appropriate postoperative care, medical management and monitoring. We will continue to follow them closely about the postoperative course.
[2020-12-09] MEDS: HYDROmorphone 1 MG/ML 1 ML SYRINGE IVP ONE ×4 (14:21→14:36)
--- NOTE | 2020-12-09 14:37 | XR ---
Limited cervical spine and fluoroscopy HISTORY: Lumbar fusion 19 seconds fluoroscopy time supplied, 2 intraoperative C-arm images document the procedure
[2020-12-09] MEDS ORDERED: diphenhydrAMINE 50 MG/ML 1 ML VIAL IVP ONE (14:48)
[2020-12-09] MEDS ORDERED: MEPERIDINE 50 MG/ML SYRINGE IVP ONE ×4 (14:57→15:04)
[2020-12-09] MEDS ORDERED: fentaNYL (PF) 50 MCG/ML 2 ML AMP IVP ONE ×2 (15:15→15:18)
[2020-12-09] MEDS: fentaNYL (PF) 50 MCG/ML 2 ML AMP IVP ONE ×3 (15:18→15:27)
[2020-12-09] MEDS: HYDROcodone/APAP 5-325MG 1 EACH TAB PO PRN ×2 (16:46→22:20)
[2020-12-09] MEDS: SODIUM CHLORIDE 0.9% 1,000 ML IV SCH (17:26)
[2020-12-09] MEDS: CYCLOBENZAPRINE 10 MG TAB PO PRN (18:25)
[2020-12-09 18:33] LABS: ALT 77 U/L (4-49); AST 60 U/L (17-59); African American GFR (CKD) >90 (>60 ml/min/1.73 sqM); Albumin 4.8 g/dL (3.5-5.0); Albumin/Globulin Ratio 1.5; Alkaline Phosphatase 80 U/L (38-126); Anion Gap 11 mmol/L; Blood Urea Nitrogen 15 mg/dL (9-20); Calcium 10.1 mg/dL (8.4-10.2); Carbon Dioxide 25 mmol/L (22-30); Chloride 100 mmol/L (98-107); Globulin 3.3 g/dL; Glucose 165 mg/dL (74-99); Non-African American GFR(CKD) 85 (>60 ml/min/1.73 sqM); Sodium 136 mmol/L (137-145); Total Bilirubin 1.1 mg/dL (0.2-1.3); Total Protein 8.1 g/dL (6.3-8.2)
[2020-12-09] MEDS: HYDROmorphone 1 MG/ML 1 ML SYRINGE IVP PRN ×2 (19:50→23:57)
--- NOTE | 2020-12-09 21:28 | CONS ---
CONSULTATION DATE OF SERVICE: 12/09/2020 REASON FOR CONSULTATION: Advice regarding hypertension, DJD, diabetes, multiple medical issues requested by Dr. Vargas. HISTORY OF PRESENT ILLNESS: This 55-year-old gentleman with past medical history of diabetes, hypertension, history of DJD, history of sleep apnea, being followed by Dr. Potts in the outpatient setting is admitted after laminectomy and decompression L4-[address] Vargas. There is no history of chest pain. No palpitations. No headache, loss of consciousness, nausea, vomiting diarrhea at this time. Patient is slightly drowsy after surgery. Complains of back pain postoperative. PAST MEDICAL HISTORY: History of diabetes, GERD, hypertension, DJD, sleep apnea, hypothyroidism, anxiety. MEDICATIONS: Norvasc 5 mg daily, Aleve 220 mg b.i.d. Mobic, losartan, levothyroxine. Doses are reviewed. ALLERGIES: None. FAMILY HISTORY: Family history of cancer in the family. SOCIAL HISTORY: Occasional alcohol. No history of smoking. REVIEW OF SYSTEMS: ENT: No diminished vision. No diminished hearing. CARDIOVASCULAR: No angina. RESPIRATORY: No cough or hemoptysis. GI no nausea and vomiting. : No dysuria. NERVOUS SYSTEM: No numbness, weakness. ALLERGY/IMMUNOLOGY: No asthma or hayfever. MUSCULOSKELETAL: As mentioned earlier. HEMATOLOGY/ONCOLOGY: No history of anemia. ENDOCRINE: Hypothyroidism. CONSTITUTIONAL: As mentioned earlier. DERMATOLOGY: Negative. RHEUMATOLOGY: Negative. PSYCHIATRIC: As mentioned earlier. PHYSICAL EXAM: The patient is alert and oriented x3. Pulse is 78. Blood pressure 143/84, respirations 17. Temperature 97.4, pulse ox 94% on 2 L. HEENT: Conjunctivae normal. NECK: No JVD. CARDIOVASCULAR: S1, S2 muffled. RESPIRATION: Breath sounds diminished in the bases. No rhonchi. No crackles. ABDOMEN: Soft, nontender. No mass palpable. LEGS: No edema. No swelling. NERVOUS SYSTEM: Higher functions as mentioned earlier. Moves all 4 limbs. No focal motor or sensory deficits. SKIN: No ulcer, no rash and no bleeding. JOINTS: No active deforming arthropathy. EXTREMITIES: Back status post surgery. LABS: Glucose 137, Covid 19 is negative. The preoperative labs hematology, hemoglobin 18.8. Coags are normal. Chemistry shows glucose 173. Other labs are noted. ALT 64. ASSESSMENT: 1. Status post laminectomy decompression L4-5 for degenerative joint disease of L4-5 and as well as foraminal stenosis L4-5. 2. Diabetes mellitus type 2. 3. Elevated ALT previously. 4. Polycythemia previously. 5. Gastroesophageal reflux disease. 6. Hypertension. 7. History of degenerative joint disease. 8. Sleep apnea. 9. History of thyroid disorder. 10.History of sleep apnea on CPAP. 11.History of MRSA. 12.History of anxiety. 13.History of nicotine dependence. RECOMMENDATIONS AND DISCUSSION: This 55-year-old gentleman who presented with multiple medical issues, we will monitor the patient closely, resume the home medications. I would also recommend repeat labs in the morning. Otherwise, incentive spirometry. DVT prophylaxis. We will follow the patient closely with you. The patient may be asked to follow up closely with primary physician in the outpatient setting. Thank you Dr. Vargas for letting us participate in the care of this patient. MMODL / IJN: [id number] /
[2020-12-10] MEDS: CYCLOBENZAPRINE 10 MG TAB PO PRN ×3 (03:52→20:55)
[2020-12-10] MEDS: HYDROcodone/APAP 5-325MG 1 EACH TAB PO PRN ×3 (03:53→17:11)
[2020-12-10 05:29] LABS: Basophils % (A) 0 %; Eosinophils % (A) 0 %; HCT 50.4 % (39.0-53.0); HGB 16.6 gm/dL (13.0-17.5); Lymphocytes # (A) 1.4 k/uL (1.0-4.8); Lymphocytes % (A) 11 %; MCH 30.4 pg (25.0-35.0); MCHC 32.9 g/dL (31.0-37.0); MCV 92.4 fL (80.0-100.0); Mean Platelet Volume 8.2; Monocytes # (A) 0.7 k/uL (0-1.0); Monocytes % (A) 5 %; Neutrophils # (A) 11.3 k/uL (1.3-7.7); Neutrophils % (A) 84 %; Platelet Count 180 k/uL (150-450); RBC 5.45 m/uL (4.30-5.90); RDW 13.9 % (11.5-15.5); WBC 13.5 k/uL (3.8-10.6)
[2020-12-10] MEDS: SODIUM CHLORIDE 0.9% 1,000 ML IV SCH ×2 (05:33→19:26)
[2020-12-10] MEDS: LEVOTHYROXINE 25 MCG TAB PO SCH (05:34)
[2020-12-10] MEDS: LACTATED RINGERS 1,000 ML IV SCH ×2 (05:34→19:55)
[2020-12-10] MEDS: amLODIPine 5 MG TAB PO SCH (09:10)
[2020-12-10] MEDS: SENNOSIDES-DOCUSATE SODIUM 1 EACH TAB PO SCH (09:10)
[2020-12-10] MEDS: LOSARTAN 50 MG TAB PO SCH (09:10)
--- NOTE | 2020-12-10 09:49 | P.PN ---
Progress Note - Text Progress Note Date: 12/10/20 Postoperative day #1 Patient is seen and examined today at bedside. The patient has some pain around the surgical site as expected. Pain is being controlled with medication. He has been up and around in the room and has started to the bathroom 3 times. He is not yet had a bowel movement. His tolerating his regular diet. He did have slight temperature this morning at 99 Physical Exam Afebrile currently with stable vital signs. He had slight temperature of 99 overnight Abdomen is soft nontender. Chest has good excursion deep and space expiration The incision site is clean dry and intact. No erythema there is no purulence. Dressings are clear without any significant drainage. Extremities have not had neurologic change from prior to surgery. He has sustained dorsal to plantar flexion and EHL intact Calves and thighs were soft nontender without evidence of DVT. Assessment/Plan Postoperative day #1 status post minimally invasive decompression and fusion L4 5 for his spinal stenosis with lower extremity radiculopathy, improving well Patient is progressing as expected from the surgery. He had a slight temperature and he is encouraged to do incentive spirometry for this. He has been making good progress but his pain is still need some control and he will likely be discharged home tomorrow We will continue to increase the patient's mobilization with therapy. We will continue pain control with oral or IV medications. We'll continue to follow patient closely.
[2020-12-10] MEDS: HYDROmorphone 1 MG/ML 1 ML SYRINGE IVP PRN ×3 (13:29→22:48)
--- NOTE | 2020-12-10 16:22 | XR ---
EXAMINATION TYPE: XR chest 1V portable DATE OF EXAM: 12/10/2020 HISTORY: Shortness of breath. COMPARISON: 11/30/2020 TECHNIQUE: Single view of the chest is submitted. FINDINGS: Demonstrated are scattered senescent parenchymal change. There is no evidence for focal infiltrate. The heart is stable. Hilar and mediastinal structures are within normal limits. Degenerative changes are seen of the dorsal spine. IMPRESSION: 1. Chronic changes without evidence for acute pulmonary disease.
--- NOTE | 2020-12-10 17:34 | PN ---
PROGRESS NOTE DATE OF SERVICE: 12/10/2020 This 55-year-old gentleman who was admitted after decompression laminectomy is being closely monitored. No chest pain. No palpitations. Mild fever is noted. REVIEW OF SYSTEMS: CARDIOVASCULAR SYSTEM: No angina, palpitations. RESPIRATORY SYSTEM: Occasional cough. GI: As mentioned earlier. : No dysuria or retention. NERVOUS SYSTEM: No numbness, weakness. PHYSICAL EXAMINATION: Alert and oriented x3. Pulse 82, blood pressure 130/84, respiration 19, temperature 100.5, pulse ox 95% on room air. HEENT: Conjunctivae normal. NECK: No jugular venous distention. CARDIOVASCULAR SYSTEM: S1, S2 muffled. RESPIRATORY SYSTEM: Breath sounds diminished at the bases. Scattered rhonchi and crackles. ABDOMEN: Soft, non-tender. LEGS: No edema. No swelling. NERVOUS SYSTEM: No focal deficit. LABS: WBC 13.4, sodium 136. CURRENT MEDICATIONS: Reviewed. They include [place], Norvasc, Dilaudid, lactated ringers, Synthroid. Doses are reviewed. ASSESSMENT: 1. Status post laminectomy decompression, L4-5, and degenerative joint disease of the L4-5 and foraminal stenosis, L4-5. 2. Mild postoperative fever. 3. Increased white count. 4. Mild hyponatremia. 5. Elevated AST, ALT. 6. Diabetes mellitus, type 2. 7. Polycythemia history. 8. History of gastroesophageal reflux disease. 9. Hypertension. 10.History of degenerative joint disease. 11.History of sleep apnea. 12.History of thyroid disorder. 13.History of CPAP. 14.History of methicillin-resistant Staphylococcus aeruginosa. 15.History of anxiety. 16.History of nicotine dependence. RECOMMENDATIONS AND DISCUSSION: I recommend to continue current medications, continue with the monitoring, symptomatic treatment. DVT prophylaxis. Incentive spirometry. Also recommend a chest x-ray and UA with micro also to complete the workup. Follow-up labs tomorrow. LFTs are mildly elevated. Avoid hepatotoxic medications. Further recommendations to follow. MMODL / IJN: [id number] /
[2020-12-10 20:39] LABS: Appearance,Urine Clear (Clear); Bilirubin,Urine Negative (Negative); Blood,Urine Trace (Negative); Color,Urine Yellow; Glucose,Urine (UA) Trace (Negative); Ketones,Urine Trace (Negative); Leukocyte Esterase,Urine Negative (Negative); Mucus,Urine Rare /hpf; Nitrite,Urine Negative (Negative); PH, Urine 6.5 (5.0-8.0); Protein,Urine Trace (Negative); RBC,Urine 2 /hpf (0-5); Specific Gravity,Urine 1.016 (1.001-1.035); Urobilinogen,Urine <2.0 mg/dL (<2.0); WBC,Urine 2 /hpf (0-5)
[2020-12-11] MEDS: HYDROcodone/APAP 5-325MG 1 EACH TAB PO PRN ×2 (02:24→08:18)
[2020-12-11] MEDS: SODIUM CHLORIDE 0.9% 1,000 ML IV SCH ×2 (05:07→19:45)
[2020-12-11] MEDS: LEVOTHYROXINE 25 MCG TAB PO SCH (05:34)
[2020-12-11] MEDS: CYCLOBENZAPRINE 10 MG TAB PO PRN (06:03)
[2020-12-11 07:20] LABS: African American GFR (CKD) >90 (>60 ml/min/1.73 sqM); Anion Gap 8 mmol/L; Blood Urea Nitrogen 9 mg/dL (9-20); Calcium 9.4 mg/dL (8.4-10.2); Carbon Dioxide 24 mmol/L (22-30); Chloride 101 mmol/L (98-107); Glucose 120 mg/dL (74-99); Non-African American GFR(CKD) >90 (>60 ml/min/1.73 sqM); Sodium 133 mmol/L (137-145)
[2020-12-11] MEDS: LOSARTAN 50 MG TAB PO SCH (08:17)
[2020-12-11] MEDS: SENNOSIDES-DOCUSATE SODIUM 1 EACH TAB PO SCH (08:17)
[2020-12-11] MEDS: amLODIPine 5 MG TAB PO SCH (08:18)
[2020-12-11] MEDS ORDERED: HYDROcodone/APAP 7.5-325MG 1 EACH TAB PO PRN (08:35)
--- NOTE | 2020-12-11 08:45 | P.PN ---
Progress Note - Text Progress Note Date: 12/11/20 Orthopedic Spine: History of present illness: Patient is a pleasant 55-year-old male who is seen and examined at the bedside following posterior lateral decompression and fusion performed Monday. Patient states they are doing ok postsurgically. He feels the pain in his lumbar spine at the surgical sites well-controlled. He states after being seen and examined at the bedside yesterday his pain had significantly worsened in regards to lower extremity radiculopathy. He states he has pain in the bilateral buttocks wounds on the posterior thigh and calf to the ankles. His symptoms are worse on the right than the left. He currently states his pain in the bedside at 10/10. He has been able to ambulate to the restroom. He is voiding without difficulty. He was able to sit in a bedside chair yesterday for approximately 3-4 hours. He has discontinued IV pain medication. Currently does not complain of nausea, vomiting, fever, or chills. Patient states pain has been adequately controlled. Physical Exam Lumbar Fusion: Status post surgical day number 2 Patient is awake, alert, and oriented 3 Vital signs stable Good chest excursion with deep inspiration and expiration Abdomen soft nontender Dorsiflexion, plantarflexion, and extensor hallucis longus positive sustained bilaterally No signs or symptoms of DVT; no calf pain; pneumatic cuffs not currently intact bilateral lower extremities Dressings are clean, dry, and intact; no erythema, purulence, or signs of infection No pain with palpation over the surgical sites Neurovascularly intact bilaterally lower extremities Assessment: Status post L4 5 minimally invasive posterior lateral decompression and fusion with transforaminal lumbar interbody fusion Bilateral lower extremity radiculopathy greater on the right than the left Low back pain Lumbar degenerative disc disease Hypertension Hypothyroidism Plan: 1. Ambulate as tolerated; work with Physical Therapy to increase mobilization 2. Continue pain control with oral medications; he has been receiving [place] 5 mg/325 mg. We will plan to adjust his medication. We will discontinue [place] 5 mg/325 mg and at [place] 7.5 mg/325 mg 1-2 tabs every 4-6 hours as needed for pain. We will plan to discharge him home with [place] 7.5 mg/325 mg 1-2 tabs every 6 hours as needed for pain. He will be also given a prescription for cyclobenzaprine 10 mg 1 tablet 3 times a day as needed for muscle spasm discharge. This medication has been sent to [facility] located in the [facility]. We'll disregard the previous prescription sent for [place] 5 mg/325 mg. MAPS has been reviewed today, 12/11/2020 , with an Overall Overdose Risk Score of 000. An "Opiod Start Talking" Form has been signed and placed in the patient's chart. 3. Dressing to remain intact with Optifoam; patient may shower with dressing intact 4. Medical management can continue to manage patient for patient's other medical diagnoses including hypertension hypothyroidism 5. We will continue to follow the patient closely; if he is able have better control of his pain today, we will plan for discharge home as early as tomorrow, 12/12/2020 6. Patient can follow-up with Brent Feldman PA-C or Dr. Neil Vargas at [facility] in 2-3 weeks following discharge
[2020-12-11] MEDS: HYDROmorphone 1 MG/ML 1 ML SYRINGE IVP PRN (13:24)
[2020-12-11 13:45] LABS: African American GFR (CKD) 72.2 (60.0-200.0); Albumin 4.5 g/dL (3.80-4.90); Albumin/Globulin Ratio 1.96 (1.60-3.17); Anion Gap 21.8 mmol/L (4.00-12.00); Calcium 9.5 mg/dL (8.7-10.3); Carbon Dioxide 16.2 mmol/L (21.6-31.8); Globulin 2.3 g/dL (1.6-3.3); Non-African American GFR(CKD) 62.3 (60.0-200.0); Potassium 4.1 mmol/L (3.5-5.5); Total Bilirubin 0.9 mg/dL (0.2-1.2); Total Protein 6.8 g/dL (6.2-8.2)
--- NOTE | 2020-12-11 16:20 | PN ---
PROGRESS NOTE DATE OF SERVICE: 12/11/2020 This 55-year-old gentleman who was admitted after laminectomy and decompression is improving significantly. No chest pain. No palpitations. No fever. PHYSICAL EXAMINATION: Alert and oriented x3. The pulse is 77, blood pressure 120/79, respiration 15, temperature 99.3, pulse ox 98% on room air. HEENT: Conjunctivae normal. NECK: No jugular venous distention. CARDIOVASCULAR SYSTEM: S1, S2 muffled. RESPIRATORY SYSTEM: Breath sounds diminished at the bases. Scattered rhonchi. ABDOMEN: Soft, non-tender. NERVOUS SYSTEM: No focal deficit. LABS: WBC 13.5, hemoglobin 16.6, sodium 133. ASSESSMENT: 1. Status post laminectomy and decompression, L4-5, degenerative joint disease of L4-5 and foraminal stenosis, L4-5. 2. Mild postoperative fever, improved. 3. Increased white count. 4. Mild hyponatremia. 5. Elevated AST and ALT. 6. Diabetes mellitus, type 2. 7. Polycythemia history. 8. History of gastroesophageal reflux disease. 9. Hypertension. 10.History of degenerative joint disease. 11.History of sleep apnea. 12.History of thyroid disorder. 13.History of CPAP. 14.History of methicillin-resistant Staphylococcus aeruginosa. 15.History of anxiety. 16.History of nicotine dependence. RECOMMENDATIONS AND DISCUSSION: I recommend to continue current medications, continue with the monitoring, symptomatic treatment. Otherwise, baseline labs are negative, including chest x-ray. Recommend close followup in the outpatient setting. Continue with incentive spirometry. The rest of the recommendations per Surgery. Further recommendations to follow. MMODL / IJN: [id number] /
[2020-12-11] MEDS: LACTATED RINGERS 1,000 ML IV SCH (19:45)
[2020-12-11] MEDS: HYDROcodone/APAP 7.5-325MG 1 EACH TAB PO PRN (21:31)
[2020-12-12] MEDS: HYDROcodone/APAP 7.5-325MG 1 EACH TAB PO PRN ×2 (03:22→09:11)
[2020-12-12 04:58] VITALS: BP 140/86; PULSE 62; RESP 16; TEMP 98.8
[2020-12-12] MEDS: CYCLOBENZAPRINE 10 MG TAB PO PRN (05:36)
[2020-12-12] MEDS: LEVOTHYROXINE 25 MCG TAB PO SCH (05:37)
[2020-12-12] MEDS: SENNOSIDES-DOCUSATE SODIUM 1 EACH TAB PO SCH (09:12)
[2020-12-12] MEDS: amLODIPine 5 MG TAB PO SCH (09:12)
[2020-12-12] MEDS: LOSARTAN 50 MG TAB PO SCH (09:12)
--- NOTE | 2020-12-12 09:32 | P.DS ---
Providers Date of admission: 12/09/20 09:26 Expected date of discharge: 12/12/20 Attending physician: Snehal Vargas Consults: 12/09/20 14:09 Consult Physician Routine Consulting Provider: Shant Armenta Consult Reason/Comments: medical management Do you want consulting provider notified?: Yes Primary care physician: Delroy Hua [facility] Hospital Course: This is a 55-year-old male who was last seen with complaint of pain in his back and right lower extremity. After discussion and consideration the patient elects to proceed with minimally invasive decompression and fusion L4-5. The patient is seen preoperatively by Dr. Potts and cleared for surgery. The patient underwent a minimally invasive decompression and fusion L4-5 on 12/09/[address] Vargas. The patient is admitted to [facility] following the procedure. The procedures performed without complication or sequelae. Patient is doing well postoperatively. Vital signs are stable at discharge. Labs are stable at discharge. The patient is ambulating well with walker. The patient is seen and examined bedside this morning. The patient states he continues to experience pain in his right lower extremity, although it is manageable. He is ambulating to the bathroom with a walker without issue. He is tolerating his diet well. He is urinating freely. He has had bowel movements since surgery. He states he is comfortable and would like to return home today. He denies chest pain, shortness breath, nausea, vomiting, fevers, chills. On examination, the patient is lying in bed in no apparent distress. He is alert and oriented 3. On inspection of low back, there are clean, dry, intact dressings in place. There is no drainage or bleeding through the dressings. Patient has full plantarflexion, dorsiflexion, eversion, inversion of the bilateral ankles. Motor and sensory are intact of bilateral lower extremities. Bilateral lower extremities warm and well-perfused with brisk capillary refill distally. The calves are soft nontender to palpation bilaterally, no signs of DVT. The patient is discharged to home on postop day #1 pending medical clearance. Please see orders and refer to the med rec for accurate list of medications. Patient Condition at Discharge: Fair Plan - Discharge Summary Discharge Rx Participant: No New Discharge Prescriptions: New HYDROcodone/APAP 7.5-325MG [[place] 7.5-325] 1 - 2 each PO Q6HR PRN #56 tab PRN Reason: Pain Docusate [Colace] 100 mg PO BID #60 capsule Cyclobenzaprine [Flexeril] 10 mg PO TID PRN #60 tab PRN Reason: Muscle Spasm No Action amLODIPine BESYLATE [Norvasc] 5 mg PO DAILY Levothyroxine Sodium 25 mcg PO DAILY Meloxicam [Mobic] 15 mg PO DAILY Losartan Potassium 50 mg PO DAILY Naproxen Sodium [Aleve] 220 mg PO BID PRN PRN Reason: Pain Discharge Medication List Levothyroxine Sodium 25 mcg PO DAILY 01/27/20 [History] amLODIPine BESYLATE [Norvasc] 5 mg PO DAILY 01/27/20 [History] Meloxicam [Mobic] 15 mg PO DAILY 06/12/20 [History] Losartan Potassium 50 mg PO DAILY 07/09/20 [History] Naproxen Sodium [Aleve] 220 mg PO BID PRN 12/03/20 [History] Cyclobenzaprine [Flexeril] 10 mg PO TID PRN #60 tab 12/11/20 [Rx] HYDROcodone/APAP 7.5-325MG [[place] 7.5-325] 1 - 2 each PO Q6HR PRN #56 tab 12/11/20 [Rx] Docusate [Colace] 100 mg PO BID #60 capsule 12/12/20 [Rx] Follow up Appointment(s)/Referral(s): Snehal Vargas DO [Doctor of Osteopathic Medicine] - 2 Weeks Activity/Diet/Wound Care/Special Instructions: Keep site clean. May shower with waterproof Optifoam intact. Do not soak in a tub. After 72 hours postoperatively, patient May remove dressing and then may shower with area uncovered. May ambulate as tolerated. Avoid heavy or rigorous activity. No repetitive bending twisting or lifting. No overhead work. Take medications as prescribed. Discharge Disposition: HOME SELF-CARE
--- NOTE | 2020-12-12 16:22 | PN ---
PROGRESS NOTE DATE OF SERVICE: 12/12/2020. This 55-year-old gentleman who was admitted after laminectomy is improving significantly. Patient had some spasms and some pain along the sciatic nerve distribution. Orthopedics is following the patient closely. No chest pain. No palpitations. No fever. PHYSICAL EXAMINATION: Alert and oriented times three. Pulse 62. Blood pressure 140/88, respirations 16, temperature 98.2. Pulse ox 100 percent on room air. HEENT: Conjunctivae normal. NECK: No JVD. CARDIOVASCULAR: S1, S2. RESPIRATIONS: Breath sounds diminished in the bases. No rhonchi. No crackles. ABDOMEN: Soft. Nontender. LEGS: No edema. No swelling. NERVOUS SYSTEM: No focal deficits. LABS: WBC 13.5 yesterday and sodium is 133. UA noted. ASSESSMENT: 1. Status post laminectomy and decompression L4-5 and degenerative joint disease of the L4-5 and foraminal stenosis L4-5. 2. Mild postoperative fever, improved. 3. Increased WBC. 4. Mild hyponatremia. 5. Increased AST/ALT. 6. Diabetes mellitus type 2. 7. Polycythemia history. 8. History of gastroesophageal reflux disease. 9. Hypertension. 10.History of degenerative joint disease. 11.Sleep apnea. 12.History of thyroid disorder. 13.History of CPAP. 14.History of MRSA. 15.History of anxiety. 16.History of nicotine dependence. 17.FULL CODE. RECOMMENDATIONS AND DISCUSSION: This 55-year-old gentleman presented after surgery, recommended continue current medications, symptomatic treatment. Pain management. Recommend to continue the home medications after discharge. Follow closely with primary physician. The rest of the recommendations per orthopedic surgery. Further recommendations to follow. MMODL / IJN: [id number] /
--- NOTE | 2021-03-08 17:49 | CDI ---
"Mild postoperative fever" is documented in the IM PH on 12/10 - 12/12 and patient had a spinal fusion and discectomy on 12/09. Additional clarification is requested regarding the relationship, if any, that exists between the diagnosis and the procedure. Patients Admitting Diagnosis: Degenerative disc disease L4/5, low back pain, foraminal stenosis L4/5, lower extremity radiculopathy Post-Operative Diagnosis:Degenerative disc disease L4/5, low back pain, foraminal stenosis L4/5, lower extremity radiculopathy Procedure performed: laminectomy and decompresion L4/5, minimally invasive posterior lateral decompression and facet fusion L4/5, minimally invasive transforaminal lumbar interbody fusion L4/5, discectomy for decompression L4/5, placement of interbody graft L4/5 History/Risk Factors: DM2, polycythemia, hypothyroid Clinical Indicators: Surg Pn on 12/10 noted the pt had "a slight temperature and he is encouraged to do incentive spirometry for this" Temp: 12/09 - 97.4, 12/10 - 98.3, 12/10 @ 1330 - 100.5, 12/11 @ 0732 - 99.6, 12/11 @ 2009 - 98.9, 12/12 - 98.8 Treatment: monitoring Consults: internal medicine What relationship, if any, exists between the diagnosis of [insert dx] and the procedure: [ ] Postoperative fever is a complication of surgical procedure [ ] Postoperative fever is an expected outcome of the surgical procedure [ ] Postoperative fever is related to patients co-morbid condition(s) & not a complication of the procedure [ ] Postoperative fever has been ruled out [ x ] Postoperative fever is not clinically significant [ ] Other please specify [ ] Unable to determine (Template Last Revised: October 2020) MTDD
== END 2020-12-12 13:25 | disposition home or self-care (01) | DRG 460 ==
LOC: 2ORMAIN 09:26 → 5NMEDONC 14:24
PROVIDERS: ADMIT Orthopaedic Surgery Orthopaedic Surgery of the Spine; ATTEND Orthopaedic Surgery Orthopaedic Surgery of the Spine
PROC: 01NB0ZZ Release Lumbar Nerve, Open Approach (ICD-10-PCS; 2020-12-09)
PROC: 0ST20ZZ Resection of Lumbar Vertebral Disc, Open Approach (ICD-10-PCS; 2020-12-09)
PROC: 0SG00AJ Fusion of Lumbar Vertebral Joint with Interbody Fusion Device, Posterior Approach, Anterior Column, Open Approach (ICD-10-PCS; principal; 2020-12-09 10:45)
DX: M48.061 Spinal stenosis, lumbar region without neurogenic claudication (principal); E87.1 Hypo-osmolality and hyponatremia; D75.1 Secondary polycythemia; E11.9 Type 2 diabetes mellitus without complications; E07.9 Disorder of thyroid, unspecified; F41.9 Anxiety disorder, unspecified; I10 Essential (primary) hypertension; K21.9 Gastro-esophageal reflux disease without esophagitis; M19.90 Unspecified osteoarthritis, unspecified site; M51.16 Intervertebral disc disorders with radiculopathy, lumbar region; R74.01 Elevation of levels of liver transaminase levels; Z86.14 Personal history of Methicillin resistant Staphylococcus aureus infection; Z87.891 Personal history of nicotine dependence; G47.30 Sleep apnea, unspecified; M51.26 Other intervertebral disc displacement, lumbar region; E03.9 Hypothyroidism, unspecified; Z80.9 Family history of malignant neoplasm, unspecified; M47.26 Other spondylosis with radiculopathy, lumbar region
CPT/HCPCS: 71045; 72040; 80048; 80053; 81001; 85025; 86850; 86900; 86901; 87635

== ENCOUNTER → 2021-09-15 | Outpatient (CLI) | payer OTHER ==
--- NOTE | 2021-09-15 12:57 | XR ---
KUB HISTORY: R 10.84 Frontal KUB and 2 images, comparison to prior exam 07/12/2010 Postop changes are noted at the lower lumbar spine status post posterior fusion likely L4-5 and inter vertebral spacer placement. No evident bowel obstruction or pneumoperitoneum. Possible vascular calci fications are present within the pelvis. IMPRESSION: Postop changes.
== END | disposition home or self-care (01) ==
LOC: RADXRMAIN 10:07
PROVIDERS: ATTEND Internal Medicine
DX: R10.84 Generalized abdominal pain (principal)
CPT/HCPCS: 74018

== ENCOUNTER → 2021-10-12 | Outpatient (CLI) | payer OTHER ==
--- NOTE | 2021-10-12 12:45 | US ---
EXAMINATION TYPE: US abdomen complete DATE OF EXAM: 10/12/2021 COMPARISON: NONE CLINICAL HISTORY: 55-year-old male R10.11 R10.31. Right-sided abdominal pain. Bloating. TECHNIQUE: Multiple sonographic images of the abdomen are obtained. FINDINGS: EXAM MEASUREMENTS: Liver Length: 18.0 cm Gallbladder Wall: 0.2 cm CBD: 0.5 cm Spleen: 12.1 cm Right Kidney: 12.2 x 4.8 x 4.8 cm Left Kidney: 12.9 x 6.2 x 3.9 cm Non Destructive Evaluation Technician notes:technical limitations due to large amount of overlying bowel content Pancreas: Obscured by bowel gas Liver: attenuating, echogenic, very limited acoustic penetration. This secondarily limits assessment for focal lesions. Gallbladder: no evidence of stones Evidence for sonographic Carpenter's sign: no CBD: appears wnl Spleen: appears wnl Right Kidney: no evidence of hydronephrosis Left Kidney: no evidence of hydronephrosis Upper IVC: Obscured by overlying bowel gas Abd Aorta: Obscured by overlying bowel gas IMPRESSION: 1. Mild hepatomegaly (18.0 cm) with moderate to severe hepatic steatosis. 2. No gallstones or biliary ductal dilatation. 3. The pancreas, abdominal aorta, and upper IVC are all obscured by bowel gas.
== END | disposition home or self-care (01) ==
LOC: RADUSWWP 10:48
PROVIDERS: ATTEND Internal Medicine
DX: K76.0 Fatty (change of) liver, not elsewhere classified (principal); R16.0 Hepatomegaly, not elsewhere classified
CPT/HCPCS: 76700

== ENCOUNTER → 2021-12-15 | Outpatient (CLI) | payer OTHER ==
--- NOTE | 2021-12-16 03:56 | MR ---
EXAMINATION TYPE: MR lumbar spine wo/w con DATE OF EXAM: 12/15/2021 COMPARISON: 720 HISTORY: Back pain CONTRAST: Standard multiplanar, multisequence MRI departmental protocol images were obtained without contrast a nd with 9 mL intravenous gadolinium contrast. The lumbar vertebrae have normal alignment. There is posterior fusion surgery at L4-5. There is disc space narrowing at L4-5. No compression fracture. I see no focal bone destruction. There is no pathol ogic enhancement. Spinal canal appears adequate. Sacroiliac joints are intact. There is no paraspinal mass. IMPRESSION: Postsurgical changes. No lumbar spinal stenosis or disc herniation. Degenerative disc narrowing at L4 -5. No fracture. No adverse change compared to old exam.
== END | disposition home or self-care (01) ==
LOC: RADMRIMAIN 10:34
PROVIDERS: ATTEND Orthopaedic Surgery Orthopaedic Surgery of the Spine
DX: M48.061 Spinal stenosis, lumbar region without neurogenic claudication (principal); M51.36 Other intervertebral disc degeneration, lumbar region
CPT/HCPCS: 72158; A9585

== ENCOUNTER → 2023-12-28 | Outpatient (CLI) | payer OTHER ==
--- NOTE | 2023-12-29 08:14 | US ---
EXAMINATION TYPE: US abdomen complete DATE OF EXAM: 12/28/2023 COMPARISON: 10/12/2021 CLINICAL INDICATION: Male, 58 years old with history of R16.0 Hepatomegaly; Hepatomegaly TECHNIQUE: Multiple sonographic images of the abdomen are obtained. FINDINGS: EXAM MEASUREMENTS: Liver Length: 16 cm Gallbladder Wall: .2cm CBD: .5 cm Spleen: 12.4 cm Right Kidney: 12.5 x 4.9 x 5.0 cm Left Kidney: 12.1 x 5.7 x 4.3 cm Pancreas: Obscured by bowel gas Liver: Increased attenuation Gallbladder: No stones seen Evidence for sonographic Carpenter's sign: No CBD: wnl Spleen: wnl Right Kidney: No hydronephrosis or masses seen Left Kidney: No hydronephrosis or masses seen Upper IVC: wnl Abd Aorta: wnl . The intrahepatic portion of the IVC and proximal abdominal aorta are within normal limits. There is no evidence of cholelithiasis. Common bile duct is unremarkable. The visualized portions of the pancreas are homogenous. The spleen is unremarkable. Kidneys are symmetric and free of hydronephros is. No renal lesions are seen. IMPRESSION: 1. Borderline hepatomegaly with hepatic steatosis unchanged compared to previous. 2. Pancreas obscured by bowel gas. 3. No other significant abnormality seen.
== END | disposition home or self-care (01) ==
LOC: RADUSWWP 08:13
PROVIDERS: ATTEND Internal Medicine Gastroenterology
DX: K76.0 Fatty (change of) liver, not elsewhere classified (principal); R16.0 Hepatomegaly, not elsewhere classified; R14.3 Flatulence
CPT/HCPCS: 76700

== ENCOUNTER 2024-01-23 11:51 | Emergency (ER) | payer OTHER ==
[2024-01-23 12:07] VITALS: RESP 18
--- NOTE | 2024-01-23 15:23 | ED ---
ENT HPI <Alberto Wood - Last Filed: 01/24/24 05:11> - General Source: patient Mode of arrival: ambulatory Limitations: no limitations <Kim Vital - Last Filed: 01/27/24 05:48> - General Chief complaint: ENT Stated complaint: Throat pain Time Seen by Provider: 01/23/24 12:05 - History of Present Illness Initial comments: 58-year-old man with past medical history of diabetes, hypertension who presents to the emergency department for throat swelling. Patient states he has had pain for over 1 month. He feels as if he cannot swallow. He saw his primary care doctor who set him up for a scope with Dr. Martinez. States that his appointment is not until next month. He states that he cannot swallow any longer due to the pain and swelling. He is not taking anything for the pain at home. His primary care did put him on an antibiotic to see if it helped. He did state that it helped for a short period of time however it then stopped. Denies any fevers. No other alleviating, precipitating modifying factors (Kim Vital) - Related Data Home Medications Medication Instructions Recorded Confirmed Levothyroxine Sodium 25 mcg PO DAILY 01/27/20 12/09/20 amLODIPine BESYLATE [Norvasc] 5 mg PO DAILY 01/27/20 12/09/20 Meloxicam [Mobic] 15 mg PO DAILY 06/12/20 12/09/20 Losartan Potassium 50 mg PO DAILY 07/09/20 12/09/20 Naproxen Sodium [Aleve] 220 mg PO BID PRN 12/03/20 12/09/20 Previous Rx's Medication Instructions Recorded Cyclobenzaprine [Flexeril] 10 mg PO TID PRN #60 tab 12/11/20 HYDROcodone/APAP 7.5-325MG [[place] 1 - 2 each PO Q6HR PRN #56 tab 12/11/20 7.5-325] Docusate [Colace] 100 mg PO BID #60 capsule 12/12/20 Nystatin 100,000 Unit/ml Susp 5 ml PO QID #150 ml 01/23/24 [Mycostatin Oral Susp] Allergies Allergy/AdvReac Type Severity Reaction Status Date / Time No Known Allergies Allergy Verified 01/23/24 12:07 Review of Systems ROS Other: All systems not noted in ROS Statement are negative. <Alberto Wood - Last Filed: 01/24/24 05:11> ROS Other: All systems not noted in ROS Statement are negative. <Kim Vital - Last Filed: 01/27/24 05:48> ROS Statement: Those systems with pertinent positive or pertinent negative responses have been documented in the HPI. Past Medical History Past Medical History: Diabetes Mellitus, GERD/Reflux, Hypertension, Sleep Apnea/CPAP/BIPAP Additional Past Medical History / Comment(s): states episodes where he passes out-(Last was 1 year ago) has episodes of feeling lightheaded & dizzy-feels better after eating or drinking.., uses c-pap machine., , rjw-vfvtmoop-ircmveh diet, abnormal liver enzymes-dr monitoring., Back pain that radiates to hips and down right leg. History of Any Multi-Drug Resistant Organisms: None Reported Date of last positivie culture/infection: 2014 MDRO Source:: face Past Surgical History: Orthopedic Surgery Additional Past Surgical History / Comment(s): tendons in wrist surgery, pain procedure Past Anesthesia/Blood Transfusion Reactions: No Reported Reaction Past Psychological History: Anxiety Smoking Status: Former smoker Past Alcohol Use History: None Reported Past Drug Use History: None Reported - Past Family History Mother Family Medical History: Cancer Sister(s) Family Medical History: Cancer <Kim Vital - Last Filed: 01/27/24 05:48> General Exam Limitations: no limitations General appearance: alert, in no apparent distress Head exam: Present: atraumatic, normocephalic, normal inspection Eye exam: Present: normal appearance, PERRL, EOMI. Absent: scleral icterus, conjunctival injection, periorbital swelling ENT exam: Present: normal exam, mucous membranes moist Neck exam: Present: normal inspection. Absent: tenderness, meningismus, lymphadenopathy Respiratory exam: Present: normal lung sounds bilaterally. Absent: respiratory distress, wheezes, rales, rhonchi, stridor Cardiovascular Exam: Present: regular rate, normal rhythm, normal heart sounds. Absent: systolic murmur, diastolic murmur, rubs, gallop, clicks GI/Abdominal exam: Present: soft, normal bowel sounds. Absent: distended, tenderness, guarding, rebound, rigid Extremities exam: Present: normal inspection, full ROM, normal capillary refill. Absent: tenderness, pedal edema, joint swelling, calf tenderness Back exam: Present: normal inspection Neurological exam: Present: alert, oriented X3, CN II-XII intact Psychiatric exam: Present: normal affect, normal mood Skin exam: Present: warm, dry, intact, normal color. Absent: rash <Kmi Vital - Last Filed: 01/27/24 05:48> Course Vital Signs 01/23/24 01/23/24 12:04 18:22 Temperature 98.1 F 98.2 F Pulse Rate 87 71 Respiratory 18 18 Rate Blood Pressure 168/101 139/86 O2 Sat by Pulse 99 98 Oximetry Medical Decision Making - Lab Data Result diagrams: 01/23/24 14:57 01/23/24 14:57 <Alberto Wood - Last Filed: 01/24/24 05:11> - Lab Data Result diagrams: 01/23/24 14:57 01/23/24 14:57 <Kim Vital [place] - Last Filed: 01/27/24 05:48> - Medical Decision Making Was pt. sent in by a medical professional or institution (Dr. PA, [employer], urgent care, hospital, or halfway...) When possible be specific @ -no Did you speak to anyone other than the patient for history (EMS, parent, family, police, friend...)? What history was obtained from this source @ -No Did you review nursing and triage notes (agree or disagree)? Why? @ -I reviewed and agree with nursing and triage notes Were old charts reviewed (outside hosp., previous admission, EMS record, old EKG, old radiological studies, urgent care reports/EKG's, halfway records)? Report findings @ -No old charts were reviewed Differential Diagnosis (chest pain, altered mental status, abdominal pain women, abdominal pain men, vaginal bleeding, weakness, fever, dyspnea, syncope, headache, dizziness, GI bleed, back pain, seizure, CVA, palpatations, mental health, musculoskeletal)? @ -Thyroid cancer, thrush, strep, Ludwigs EKG interpreted by me (3pts min.). @ -Not done X-rays interpreted by me (1pt min.). @ -None done CT interpreted by me (1pt min.). @ -Pending at this time U/S interpreted by me (1pt. min.). @ -None done What testing was considered but not performed or refused? (CT, X-rays, U/S, labs)? Why? @ -None What meds were considered but not given or refused? Why? @ -None Did you discuss the management of the patient with other professionals (professionals i.e. DrBriseyda, PA, [employer], lab, RT, psych nurse, delinquency prevention social worker, bench technician, teacher, nuclear officer, housing case manager)? Give summary @ -Spoke with Dr. More who will follow-up on the patient Was smoking cessation discussed for >3mins.? @ -No Was critical care preformed (if so, how long)? @ -No Were there social determinants of health that impacted care today? How? (Homele ssness, low income, unemployed, alcoholism, drug addiction, transportation, low edu. Level, literacy, decrease access to med. care, [facility] [facility], rehab)? @ -No Was there de-escalation of care discussed even if they declined (Discuss DNR or withdrawal of care, Hospice)? DNR status @ -No What co-morbidities impacted this encounter? (DM, HTN, Smoking, COPD, CAD, Cancer, CVA, ARF, Chemo, Hep., AIDS, mental health diagnosis, sleep apnea, morbid obesity)? @ -None Was patient admitted / discharged? Hospital course, mention meds given and route, prescriptions, significant lab abnormalities, going to OR and other pertinent info. @ -Upon arrival patient seen and evaluated in room 29. Thorough history and physical exam was performed. Patient will be swabbed for strep. Laboratory studies will be conducted. CT will be performed due to palpable mass in patient's neck. Patient is signed out to Dr. More awaiting these tests (Kim Vital) - Lab Data Lab Results 01/23/24 01/23/24 01/23/24 Range/Units 14:57 14:57 14:57 WBC 10.9 H (3.8-10.6) k/uL RBC 5.77 (4.30-5.90) m/uL Hgb 18.2 H (13.0-17.5) gm/dL Hct 52.5 (39.0-53.0) % MCV 90.9 (80.0-100.0) fL MCH 31.6 (25.0-35.0) pg MCHC 34.7 (31.0-37.0) g/dL RDW 14.3 (11.5-15.5) % Plt Count 170 (150-450) k/uL MPV 8.7 Neutrophils % 63 % Lymphocytes % 27 % Monocytes % 7 % Eosinophils % 1 % Basophils % 1 % Neutrophils # 6.8 (1.3-7.7) k/uL Lymphocytes # 2.9 (1.0-4.8) k/uL Monocytes # 0.7 (0-1.0) k/uL Eosinophils # 0.1 (0-0.7) k/uL Basophils # 0.1 (0-0.2) k/uL Sodium 139 (137-145) mmol/L Potassium 4.3 (3.5-5.1) mmol/L Chloride 107 (98-107) mmol/L Carbon Dioxide 23 (22-30) mmol/L Anion Gap 9 mmol/L BUN 11 (9-20) mg/dL Creatinine 0.75 (0.66-1.25) mg/dL Est GFR (CKD-EPI)AfAm >90 (>60 ml/min/1.73 sqM) Est GFR (CKD-EPI)NonAf >90 (>60 ml/min/1.73 sqM) Glucose 109 H (74-99) mg/dL POC Glucose (mg/dL) (70-110) mg/dL POC Glu Magnetic Resonance Technologist ID Plasma Lactic Acid Harris 1.4 (0.7-2.0) mmol/L Calcium 10.1 (8.4-10.2) mg/dL Total Bilirubin 1.5 H (0.2-1.3) mg/dL AST 27 (17-59) U/L ALT 39 (4-49) U/L Alkaline Phosphatase 77 (38-126) U/L Total Protein 8.2 (6.3-8.2) g/dL Albumin 5.1 H (3.5-5.0) g/dL Heterophile Antibody (Negative) Group A Strep (PCR) (Not Detectd) 01/23/24 01/23/24 01/23/24 Range/Units 14:57 14:57 16:57 WBC (3.8-10.6) k/uL RBC (4.30-5.90) m/uL Hgb (13.0-17.5) gm/dL Hct (39.0-53.0) % MCV (80.0-100.0) fL MCH (25.0-35.0) pg MCHC (31.0-37.0) g/dL RDW (11.5-15.5) % Plt Count (150-450) k/uL MPV Neutrophils % % Lymphocytes % % Monocytes % % Eosinophils % % Basophils % % Neutrophils # (1.3-7.7) k/uL Lymphocytes # (1.0-4.8) k/uL Monocytes # (0-1.0) k/uL Eosinophils # (0-0.7) k/uL Basophils # (0-0.2) k/uL Sodium (137-145) mmol/L Potassium (3.5-5.1) mmol/L Chloride (98-107) mmol/L Carbon Dioxide (22-30) mmol/L Anion Gap mmol/L BUN (9-20) mg/dL Creatinine (0.66-1.25) mg/dL Est GFR (CKD-EPI)AfAm (>60 ml/min/1.73 sqM) Est GFR (CKD-EPI)NonAf (>60 ml/min/1.73 sqM) Glucose (74-99) mg/dL POC Glucose (mg/dL) 104 (70-110) mg/dL POC Glu Magnetic Resonance Technologist ID Gabrielle Culver Plasma Lactic Acid Harris (0.7-2.0) mmol/L Calcium (8.4-10.2) mg/dL Total Bilirubin (0.2-1.3) mg/dL AST (17-59) U/L ALT (4-49) U/L Alkaline Phosphatase (38-126) U/L Total Protein (6.3-8.2) g/dL Albumin (3.5-5.0) g/dL Heterophile Antibody Negative (Negative) Group A Strep (PCR) NOT DETECTED (Not Detectd) Disposition Is patient prescribed a controlled substance at d/c from ED?: No <Alberto Wood - Last Filed: 01/24/24 05:11> <Kim Vital - Last Filed: 01/27/24 05:48> Clinical Impression: Pharyngitis Disposition: HOME SELF-CARE Condition: Good Instructions (If sedation given, give patient instructions): Pharyngitis (ED) Prescriptions: Nystatin 100,000 Unit/ml Susp [Mycostatin Oral Susp] 5 ml PO QID #150 ml Referrals: Catherine Mckinnon [Primary Care Provider] - 1-2 days Chris Villalta DO [Doctor of Osteopathic Medicine] - 1-2 days
[2024-01-23 15:42] LABS: Basophils # (A) 0.1 k/uL (0-0.2); Basophils % (A) 1 %; Eosinophils # (A) 0.1 k/uL (0-0.7); Eosinophils % (A) 1 %; HCT 52.5 % (39.0-53.0); HGB 18.2 gm/dL (13.0-17.5); Lymphocytes # (A) 2.9 k/uL (1.0-4.8); Lymphocytes % (A) 27 %; MCH 31.6 pg (25.0-35.0); MCHC 34.7 g/dL (31.0-37.0); MCV 90.9 fL (80.0-100.0); Mean Platelet Volume 8.7; Monocytes # (A) 0.7 k/uL (0-1.0); Monocytes % (A) 7 %; Neutrophils # (A) 6.8 k/uL (1.3-7.7); Neutrophils % (A) 63 %; Platelet Count 170 k/uL (150-450); RBC 5.77 m/uL (4.30-5.90); RDW 14.3 % (11.5-15.5); WBC 10.9 k/uL (3.8-10.6)
[2024-01-23 15:46] LABS: ALT 39 U/L (4-49); AST 27 U/L (17-59); African American GFR (CKD) >90 (>60 ml/min/1.73 sqM); Albumin 5.1 g/dL (3.5-5.0); Alkaline Phosphatase 77 U/L (38-126); Anion Gap 9 mmol/L; Blood Urea Nitrogen 11 mg/dL (9-20); Calcium 10.1 mg/dL (8.4-10.2); Carbon Dioxide 23 mmol/L (22-30); Chloride 107 mmol/L (98-107); Glucose 109 mg/dL (74-99); Non-African American GFR(CKD) >90 (>60 ml/min/1.73 sqM); Potassium 4.3 mmol/L (3.5-5.1); Sodium 139 mmol/L (137-145); Total Bilirubin 1.5 mg/dL (0.2-1.3); Total Protein 8.2 g/dL (6.3-8.2)
[2024-01-23 17:00] LABS: Glucose,Whole Blood 104 mg/dL (70-110)
--- NOTE | 2024-01-23 17:28 | CT ---
EXAMINATION TYPE: CT soft tissue neck w con CT DLP: 286.5 mGycm, Automated exposure control for dose reduction was used. DATE OF EXAM: 01/23/2024 4:18 PM COMPARISON: . CLINICAL INDICATION:Male, 58 years old with history of left sided neck mass, cant swallow; PHH, pain and difficulty swallowing. TECHNIQUE: Standard enhanced CT of the neck. Axial sections with coronal and sagittal reformats were obtained. Contrast used:100 ml mL of Isovue 300 with IV Contrast, (None if empty) Oral contrast used: (None if empty) FINDINGS: Brain: Visualized portions are grossly unremarkable. Orbits: Unremarkable Sinuses: Grossly unremarkable. Spaces of the neck: No masses identified. There is very subtle slight asymmetry with the left soft ti ssues being slightly larger than the right, nonspecific. Musculoskeletal: No acute osseous pathology. Lymph nodes: Small number of nonenlarged lymph nodes are seen along both anterior chains of the neck . Vascular structures: Visualized major arteries are patent without evidence of aneurysm.. No calcific atherosclerotic carotid disease. Thoracic Inlet/airway: Airway is patent. The lung apices are clear. Soft tissues/Thyroid: Thyroid and remainder of the soft tissues are unremarkable. Other: none. IMPRESSION 1. No definite evidence for abscess or significant abnormality. 2. Questionable slight asymmetrically thicker left soft tissues of the oropharynx
[2024-01-23] MEDS: CLOTRIMAZOLE TROCHE 10 MG TROCHE MUCOUS MEM STA (18:22)
[2024-01-23 18:28] VITALS: BP 139/86; PULSE 71; TEMP 98.2
== END 2024-01-23 18:22 | disposition home or self-care (01) ==
LOC: EC 11:51
DX: J02.9 Acute pharyngitis, unspecified (principal); Z87.891 Personal history of nicotine dependence
CPT/HCPCS: 36415; 87651; 80053; 83605; 85025; 86308; 70491; 99283; Q9967

== ENCOUNTER 2024-02-14 07:44 | Day surgery (SDC) | payer OTHER ==
[2024-02-09 12:54] VITALS: BMI 25.7
[~2024-02-14 07:44] MED LIST changes: -DEXAMETHASONE SOD PHOSPHATE 4 MG/ML 1 ML VIAL IV ONE; -ONDANSETRON 4 MG/2 ML VIAL IVP ONE; -ceFAZolin 1,000 MG in SODIUM CHLORIDE 0.9% IRRIGATIO 1,000 ML IRRIGATION PRN
[2024-02-14 08:16] VITALS: TEMP 98
[2024-02-14 08:30] LABS: Glucose,Whole Blood 106 mg/dL (70-110)
[2024-02-14] MEDS: LACTATED RINGERS 1,000 ML IV SCH (08:34)
[2024-02-14] MEDS: IV FLUID CONTINUATION 1,000 ML IV ONE ×2 (08:37→08:50)
[2024-02-14] MEDS ORDERED: PROPOFOL 10 MG/ML 20 ML VIAL IV ONE (08:54)
--- NOTE | 2024-02-14 09:05 | P.PCN ---
Date of Procedure: 02/14/24 Procedure(s) Performed: BRIEF HISTORY: Patient is a 58-year-old, pleasant, male scheduled for an upper endoscopy as a part evaluation of longstanding history of GERD. For the last 2 months has been having severe throat irritation and throat burning. He has been on omeprazole 20 mg daily for several years. He was treated with antibiotics in the last 2 months with no help.. PROCEDURE PERFORMED: Esophagogastroduodenoscopy with biopsy. PREOPERATIVE DIAGNOSIS: Longstanding show of GERD/throat irritation for the last 3 months. IV sedation per anesthesia. PROCEDURE: After informed consent was obtained, the patient was brought into the endoscopy unit. IV sedation was administered by Anesthesia under continuous monitoring. Initially the Olympus GIF-140 video endoscope was inserted into the mouth. Esophagus intubated without any difficulty. It was gradually advanced into the stomach and duodenum and carefully examined. The bulb and the second part of the duodenum appeared normal. The scope at this time was withdrawn to the stomach, adequately insufflated with air, and upon careful examination, mucosa of the antrum, body, cardia and the fundus appeared normal. The scope was then withdrawn into the esophagus. Small hiatal hernia noted. The GE junction was located at 40 cm from the incisors. The GE junction appeared irregular and there were 2 small tongues of Odonnell's appearing mucosa extending 2 to 3 mm proximal to the GE junction that was biopsied. The rest of the esophagus appe ared normal. There were no erosions or ulcerations seen and the patient tolerated the procedure well. IMPRESSION: 1. Short segment Odonnell's esophagus s/p biopsy. 2. Small hiatal hernia. RECOMMENDATIONS: The findings of this examination were discussed with the patient as well as his family. He was advised to follow-up with the biopsy results.. If the biopsy confirms the presence of Odonnell's esophagus, recommended repeat upper endoscopy in 3 years. In the meantime continue with omeprazole 20 mg daily and follow antireflux measures. Recommend ENT evaluation for throat symptoms.
[2024-02-14 09:13] VITALS: RESP 18
[2024-02-14 09:27] VITALS: BP 115/76; PULSE 63
== END 2024-02-14 09:43 | disposition home or self-care (01) ==
LOC: ORWHC2ENDO 07:44
PROVIDERS: ATTEND Internal Medicine Gastroenterology
DX: K21.00 Gastro-esophageal reflux disease with esophagitis, without bleeding (principal); K44.9 Diaphragmatic hernia without obstruction or gangrene; K22.70 Barrett's esophagus without dysplasia; G47.33 Obstructive sleep apnea (adult) (pediatric); I10 Essential (primary) hypertension; E11.9 Type 2 diabetes mellitus without complications; E07.9 Disorder of thyroid, unspecified; Z79.890 Hormone replacement therapy; Z98.890 Other specified postprocedural states; Z79.899 Other long term (current) drug therapy; Z79.84 Long term (current) use of oral hypoglycemic drugs
CPT/HCPCS: 88305; 43239; J2704